=== PATIENT | female | born 1955 | race Caucasian/White ===

== ENCOUNTER → 2024-10-30 | Outpatient (CLI) | payer MEDICARE, SELFPAY ==
[2024-10-30 15:55] LABS: Glucose Estimated Average 189 mg/dL (80-131); Hemoglobin A1C 8.2 % Hgb (4.8-6.0)
[2024-10-30 15:59] LABS: Collection Type, Urine Clean Catch
[2024-10-30 16:08] LABS: Alanine Aminotransferase 22 U/L (10-49); Albumin, Serum 4.5 gm/dL (3.4-4.8); Alkaline Phosphatase 92 U/L (46-116); Anion Gap 5 (7-16); Aspartate Amino Transferase 15 U/L (0-34); BUN/Creatinine Ratio 23 Ratio (12-20); Bilirubin,Total 0.6 mg/dL (0.3-1.2); Blood Urea Nitrogen 18 mg/dL (9-23); Calcium 9.5 mg/dL (8.3-10.6); Calcium (Corrected) 9.5 mg/dL (8.5-10.1); Carbon Dioxide 34.4 mMol/L (20.0-31.0); Cardiac Risk Estimate 2.3 RATIO (3.7-5.6); Chloride 102 mMol/L (98-107); Cholesterol 149 mg/dL (132-200); Creatinine (Component) 0.8 mg/dL (0.6-1.3); Globulin 2.3 gm/dL (2.3-3.5); Glucose 54 mg/dL (74-106); HDL Cholesterol 66 mg/dL (40-60); LDL Cholesterol,Calculated 70 mg/dL (0-130); Osmolality,Calculated 281 (275-295); Sodium 141 mMol/L (136-145); Thyroid Stimulating Hormone 2.32 uIU/mL (0.55-4.78); Total Protein 6.8 gm/dL (5.7-8.2); Triglycerides 66 mg/dL (30-150); eGFR > 60 See Note
[2024-10-30 16:16] LABS: Basophils % (Auto) 1 % (0-2.5); Eosinophils % (Auto) 1 % (0-10); Hematocrit 49.4 % (36.0-46.0); Hemoglobin 16.7 g/dL (12.0-16.0); Immature Granulocytes % (Auto) 0 % (0-0); Immature Granulocytes Auto 0.01 Thou/mm3 (0.00-0.00); Lymphocytes # (Auto) 2.4 Thou/mm3 (1.0-4.8); Lymphocytes % (Auto) 42 % (10-50); Mean Corpuscular HGB Conc 33.8 g/dl (31.0-37.0); Mean Corpuscular Hemoglobin 31.2 pg (25.0-35.0); Mean Corpuscular Volume 92 fL (80-100); Monocytes # (Auto) 0.4 Thou/mm3 (0.0-0.8); Monocytes % (Auto) 8 % (0-12); Neutrophils # (Auto) 2.8 Thou/mm3 (1.8-7.7); Neutrophils % (Auto) 49 % (37-80); Nucleated Red Blood Cell % 0 /100 WBC (0); Platelet Count 225 Thou/mm3 (140-440); RDW Standard Deviation 42.5 fL (36.4-46.3); Red Blood Count 5.36 Miln/mm3 (4.00-5.20); White Blood Count 5.8 Thou/mm3 (3.6-11.0)
[2024-10-30 16:49] LABS: Bacteria,Urine Rare; Bilirubin,Urine Negative (Negative); Blood,Urine Negative (Negative); Clarity,Urine Clear (Clear/Hazy); Color,Urine Yellow (Lt Yel-Yel); Glucose, Urine 4+ (Negative); Ketones,Urine Negative (Negative); Leukocyte Esterase,Urine Negative (Negative); Nitrite,Urine Negative (Negative); Protein,Urine Trace (Neg - Trace); RBC,Urine 2 /hpf (0-3); Specific Gravity,Urine 1.048 (1.001-1.035); Squamous Epithelial Cell,Urine 1 /hpf (0-5); Urobilinogen,Urine Negative mg/dL (0.0-1.0); WBC,Urine 1 /hpf (0-5)
[2024-10-30 16:55] LABS: Creatinine MALB Rnd Ur 127 mg/dL (30-125); Microalbumin Creat Ratio 6 mg/gCrea (<30); Microalbumin, Random Urine 8 mg/L (0-300)
== END | disposition home or self-care (01) ==
LOC: COPL 14:54
PROVIDERS: PCP Internal Medicine; Referring Provider Internal Medicine; Visit Provider Internal Medicine
DX: E11.9 Type 2 diabetes mellitus without complications (principal); I10 Essential (primary) hypertension; E78.5 Hyperlipidemia, unspecified
CPT/HCPCS: 36415; 80053; 80061; 81001; 82043; 82570; 83036; 84443; 85025

== ENCOUNTER 2025-04-10 08:03 | Inpatient (IN) | payer MEDICARE, BC, SELFPAY ==
[2025-04-10] VITALS (45 sets, daily range): BP systolic 71–132; BP diastolic 38–78; PULSE 96–128; RESP 10–96; TEMP 36.6–37.7; O2SAT 82–99; BMI 20.7
--- NOTE | 2025-04-10 08:09 | EDNOTE_ITS ---
ED Dizzyness RME/HPI General Chief Complaint: Dizziness Stated Complaint: DIZZINESS Time Seen by Provider: 04/10/25 08:30 Arrival date/time: 04/10/25 08:03 RME / HPI RME / HPI Narrative: DR. RAY MAIN ED EVALUATION: This section includes all my notes and documentations, including HPI, PE, and ED course.? Antoine Ray MD HPI: 69 year old female with past medical history significant for diabetes and hypertension presents to the Emergency Department [facility] with dizziness and generalized weakness for couple days. No chest pain. No fevers or chills. No congestion, runny nose, or cough. Blood glucose by EMS was 285, patient took her insulin this morning. Here blood pressure was 95/53. She lives with her son and grandson. No other complaints. ROS: All negative except as documented in HPI. Physical Exam: General:? Alert and oriented.? Appearance of malaise noted. Hypotension noted. Eyes:? Conjunctivae and lids clear.? EOMI.? PERRL. ENT:? No nasal congestion.? Pharynx normal.? Tympanic membrane normal bilaterally.??? Neck:? Supple.? No carotid bruit.? No JVD.?? Heart:? RRR.? Lungs:? No respiratory distress.? Good air movement.? No rhonchi, wheezing, rales.?? Abdomen:? Soft and nontender.? Normal bowel sounds.? No distension.? No rebound or guarding.?? Back:? No CVA tenderness.?? Legs:? No clubbing, cyanosis, edema.? Skin:? Warm and dry.?? Neuro:? Alert and oriented X 3.? Cranial Nerves II-XII grossly intact.? No peripheral motor deficits. I reviewed EMS notes. I reviewed all diagnostic test results. My interpretation of the EKG is?Sinus rhythm (96 bpm) with nonspecific ST-T changes. My interpretation of the chest x-ray is NAD. My interpretation of the right forearm x-rays is radial head fracture. My review of the head CT report is?NAD. My review of the abdominal CT report is LLL pneumonia. Blood tests remarkable for WBC 17.2, CO2 15.1, anion gap 17, lactic acid 9.8, and glucose 219. UA showed positive leukocyte esterase and 64 WBC. COVID/influenza negative. At this point, diagnoses include generalized weakness, pneumonia, UTI, elevated lactic acid, elevated anion gap, leukocytosis, hyperglycemia, right elbow f racture. Meclizine and Zofran and scopolamine patch before diagnostic tests. No improvement noted. Other treatment included IV fluid, Levophed drip, ABX. I discussed the case with our ICU team.? About the presentation and exam and diagnostics and treatments here.? And need of further care in the hospital. Will accept the patient. Antoine Ray MD Related Data Home Medications ?Medication ?Instructions ?Recorded ?Confirmed insulin glargine 100 unit/mL 70 unit subcut HS ##0 05/12/21 subcutaneous solution (Lantus U-100 Insulin) bupropion HCl 300 mg 24 hr tablet, 300 mg PO QAM 02/0405/12/21 extended release (Wellbutrin XL) metformin 500 mg tablet 500 mg PO BID 02/04/1905/12 doxepin 50 mg capsule 50 mg PO HS 07/31/20 1 duloxetine 30 mg capsule,delayed 60 mg PO QDAY 0 05/12/21 release nadolol 40 mg tablet 40 mg PO QDAY 07/31/2005/12 simvastatin 40 mg tablet 40 mg PO HS 07/31/20 1 telmisartan 20 mg tablet 20 mg PO QDAY 07/31/2005/12 Previous Rx's ?Medication ?Instructions ?Recorded hydrocodone 5 mg-acetaminophen 325 1 tab PO Q6H PRN pa in #7 tabs 05/12/23 mg tablet Allergies Allergy/AdvReac Type Severity Reaction Status Date / Time No Known Allergies Allergy Verified 05/11/21 21:16 Course Quality Measures none Orders Category Date Time Status Bedside COVID-19 Antigen Test NOW Care 04/10/25 08:09 Active Bedside Influenza A&B Antigen Test NOW Care 04/10/25 08:09 Completed COVID-19 Screening Questionnaire NOW Care 04/10/25 11:44 Active Decision to Admit X1 Care 04/10/25 11:44 Completed EKG (ED ONLY) *Do not use* NOW Care 04/10/25 08:10 Completed Flu & Pneumonia Vaccine Screen ONCE Care 04/10/25 12:01 Active Notify provider NEEDED Care 04/10/25 12:01 Active Saline [Insert IV] NOW Care 04/10/25 08:09 Active Straight [In and Out Catheter] X1 Care 04/10/25 08:09 Active Consult to Nephrology Stat Cons 04/10/25 11:[address] head/brain wo con Stat Exams 04/10/25 08:10 Completed EKG (ED Only) Stat Exams 04/10/25 08:10 Draft XR chest 1V portable Stat Exams 04/10/25 08:10 Completed ABG [Arterial Blood Gas] Stat Lab 04/10/25 11:11 Completed BNP [B-Type Natriuretic Peptide] Stat Lab 04/10/25 08:35 Completed Beta Hydroxybutyrate Stat Lab 04/10/25 09:48 Completed Bilirubin,Direct Stat Lab 04/10/25 08:35 Completed Blood Culture (Lab) Stat Lab 04/10/25 11:06 Results CBC AM DRAW Lab 04/11/25 05:18 Completed CBC AM DRAW Lab 04/12/25 05:00 Ordered CBC AM DRAW Lab 04/13/25 05:00 Ordered CBC Stat Lab 04/10/25 08:35 Completed CMP [Comprehensive Metabolic Panel] Stat Lab 04/10/25 08:35 Completed CRP [C-Reactive Protein] Stat Lab 04/10/25 11:03 Completed Free T4 (Free Thyroxine) Stat Lab 04/10/25 08:35 Completed Hemoglobin A1C [Glycohemoglobin w (eAG)] Stat Lab 04/10/25 09:48 Completed Lactate (Lactic Acid) Stat Lab 04/10/25 11:03 Completed Lactic Acid, 3 HR Stat Lab 04/10/25 14:22 Completed Magnesium AM DRAW Lab 04/11/25 05:18 Completed Magnesium AM DRAW Lab 04/12/25 05:00 Ordered Magnesium AM DRAW Lab 04/13/25 05:00 Ordered Magnesium Stat Lab 04/10/25 08:35 Completed Procalcitonin Stat Lab 04/10/25 11:03 Completed Sed Rate (ESR) Stat Lab 04/10/25 08:35 Completed TSH [Thyroid Stimulating Hormone] Stat Lab 04/10/25 08:35 Completed Troponin I Stat Lab 04/10/25 08:35 Completed UA, C/S IF [Urinalysis, C/S if Indicated] Stat Lab 04/10/25 14:12 Completed Urine Culture Stat Lab 04/10/25 14:12 Received VBG [Venous Blood Gas] Stat Lab 04/10/25 09:48 Completed Acetaminophen Tab [Tylenol ES Tab] Med 04/10/25 12:01 Discontinued 1,000 mg PO Q6H PRN Enoxaparin [Lovenox] Med 04/11/25 09:00 Discontinued 40 mg SC QDAY Insulin Regular Med 04/10/25 09:29 Discontinued 10 unit IV X1 ONE Meclizine HCl [Antivert] Med 04/10/25 08:09 Discontinued 25 mg PO X1 ONE Norepinephrine/NS 16mg/250ml [Levophed in NS 16mg/250ml Med 04/10/25 10:42 Active ] 16 mg in 250 ml IV 0.05 mcg/kg/min Ondansetron Inj [Zofran Inj] Med 04/10/25 12:01 Active 4 mg IVP Q6H PRN Ondansetron Inj [Zofran Inj] Med 04/10/25 08:09 Discontinued 4 mg IVP X1 ONE Ringers Lactated 1000 ml [Lactated Ringers] 1,000 ml Med 04/10/25 12:53 Discontinued IV 100 mls/hr Scopolamine [Transderm-Scop Patch] Med 04/10/25 08:09 Discontinued 1 mg TOP X1 ONE Sodium Chloride 0.9% 1000 ml [Ns] 1,000 ml Med 04/10/25 08:09 Discontinued IV 999 mls/hr Sodium Chloride 0.9% 1000 ml [Ns] 1,000 ml Med 04/10/25 10:37 Discontinued IV 999 mls/hr Sodium Chloride 0.9% 1000 ml [Ns] 1,000 ml Med 04/10/25 12:52 Discontinued IV 999 mls/hr Code Status Routine Oth 04/10/25 12:01 Ordered Vital Signs Vital signs: Vital Signs Temperature 97.8 F 04/10/25 08:06 Pulse Rate 96 04/10/25 08:06 Respiratory Rate 18 04/10/25 08:06 Blood Pressure 95/53 L 04/10/25 08:06 Pulse Oximetry (%) 96 04/10/25 08:06 Oxygen Delivery Method Room Air 04/10/25 08:06 Dizziness MDM Narrative MDM Narrative:: I, Ester Wallace, am scribing for and in the presence of Dr. Ray. Patient data External records reviewed:: [facility] previous records and EMS form Clinical information provided by:: patient and EMS Social determinants that could affect healthcare access:: none Patient has the following chronic illnesses:: Hypertension and diabetes. How is presenting disease/condition affected by chronic disease/condition?: exacerbated by Evaluation data The following diagnostics were reviewed and interpreted by me:: lab results, radiology exam(s) and EKG tracing(s) (My interpretation of the EKG is: Sinus rhythm (96 bpm) with nonspecific ST-T changes. Antoine Ray MD) Lab and/or radiology exams considered but not ordered:: none Interpretation Summary: I reviewed all diagnostic test results. My interpretation of the EKG is?Sinus rhythm (96 bpm) with nonspecific ST-T changes. My interpretation of the chest x-ray is NAD. My interpretation of the right forearm x-rays is radial head fracture. My review of the head CT report is?NAD. My review of the abdominal CT report is LLL pneumonia. Blood tests remarkable for WBC 17.2, CO2 15.1, anion gap 17, lactic acid 9.8, and glucose 219. UA showed positive leukocyte esterase and 64 WBC. COVID/influenza negative. Medications / Prescriptions Medications or Prescriptions considered but not ordered:: none Medication administrations:: Medication Administration History Acetaminophen (Acetaminophen 500 Mg Tablet) 1,000 mg PO Q6H PRN PRN Reason: Fever >99.9 or pain 1-3 Stop: 05/10/25 12:00 Hydrocodone Bitart/Acetaminophen (Hydrocodone/Apap 5/325 Tablet) 1 tab PO Q4HR PRN PRN Reason: Pain 4-7 Stop: 04/15/25 17:06 Last Admin: 04/11/25 22:02 Dose: 1 tab Documented By: Admin: 04/11/25 17:33 Dose: 1 tab Documented By: Admin: 04/11/25 13:23 Dose: 1 tab Documented By: Admin: 04/10/25 17:50 Dose: 1 tab Documented By: PIPPA Atorvastatin Calcium (Atorvastatin Calcium 20 Mg Tablet) 80 mg PO HS [facility] Stop: 05/11/25 20:59 Last Admin: 04/11/25 21:07 Dose: 80 mg Documented By: CAROLINA Buspirone HCl (Buspirone Hcl 5 Mg Tablet) 10 mg PO BID [facility] Stop: 05/10/25 20:59 Last Admin: 04/11/25 21:06 Dose: 10 mg Documented By: Admin: 04/11/25 08:08 Dose: 10 mg Documented By: Admin: 04/10/25 22:12 Dose: Not Given Documented By: SS Non-Admin Reason: Per MD Dextrose (Dextrose 50%-Water Inj 50 Ml Syringe) 25 ml IV Q15MIN PRN PRN Reason: BG 50-70 responsive npo pt Stop: 05/10/25 14:32 Dextrose (Dextrose 50%-Water Inj 50 Ml Syringe) 50 ml IV Q15MIN PRN PRN Reason: BG <50 OR BG <70 & pt unresponsive Stop: 05/10/25 14:32 Duloxetine HCl (Duloxetine Hcl 30 Mg Capsule) 60 mg PO QDAY [facility] Stop: 05/11/25 08:59 Last Admin: 04/11/25 08:08 Dose: 60 mg Documented By: ALEJANDRO Glucagon (Glucagon Inj 1 Mg Vial) 1 mg IM Q15MIN PRN PRN Reason: BG <70, and no IV access Heparin Sodium (Porcine) (Heparin Sod Inj 5000 Unit/Ml Vial) 5,000 unit SC BID [facility] Stop: 04/25/25 08:59 Last Admin: 04/11/25 21:06 Dose: 5,000 unit Documented By: CAROLINA Co-signed By: ARETHA Admin: 04/11/25 08:09 Dose: 5,000 unit Documented By: ALEJANDRO Co-signed By: KD Norepinephrine Bitartrate (Levophed In Ns 16mg/250ml) 16 mg in 250 mls @ 2.977 mls/hr IV .Q24H PRN; Protocol PRN Reason: PER PROTOCOL Stop: 05/10/25 10:41 Last Titration: 04/10/25 13:13 Dose: 0 mcg/kg/min, 0 mls/hr Documented By: Titration: 04/10/25 12:50 Dose: 0.05 mcg/kg/min, 2.977 mls/hr Documented By: Titration: 04/10/25 12:35 Dose: 0.05 mcg/kg/min, 2.977 mls/hr Documented By: Titration: 04/10/25 12:20 Dose: 0.05 mcg/kg/min, 2.977 mls/hr Documented By: Titration: 04/10/25 12:05 Dose: 0.05 mcg/kg/min, 2.977 mls/hr Documented By: Titration: 04/10/25 11:50 Dose: 0.07 mcg/kg/min, 4.167 mls/hr Documented By: Titration: 04/10/25 11:35 Dose: 0.07 mcg/kg/min, 4.167 mls/hr Documented By: Titration: 04/10/25 11:20 Dose: 0.07 mcg/kg/min, 4.167 mls/hr Documented By: Titration: 04/10/25 11:05 Dose: 0.07 mcg/kg/min, 4.167 mls/hr Documented By: Titration: 04/10/25 11:00 Dose: 0.07 mcg/kg/min, 4.167 mls/hr Documented By: Admin: 04/10/25 10:55 Dose: 0.05 mcg/kg/min, 2.977 mls/hr Documented By: TM Piperacillin/Tazobactam/Dextrose (Zosyn) 3.375 gm in 50 mls @ 12.5 mls/hr IV Q8HR [facility]; Protocol Stop: 04/17/25 21:59 Last Admin: 04/11/25 21:08 Dose: 12.5 mls/hr Documented By: Infusion: 04/11/25 19:00 Dose: Infused Documented By: Admin: 04/11/25 15:00 Dose: 12.5 mls/hr Documented By: Infusion: 04/11/25 10:23 Dose: Infused Documented By: Admin: 04/11/25 06:23 Dose: 12.5 mls/hr Documented By: Infusion: 04/11/25 02:13 Dose: Infused Documented By: Admin: 04/10/25 22:13 Dose: 12.5 mls/hr Documented By: SS Vancomycin/Sodium Chloride (Vancomycin/Ns 1 Gm Ivpb) 200 mls @ 120 mls/hr IV Q24H [facility] Stop: 04/18/25 21:59 Last Admin: 04/11/25 21:07 Dose: 120 mls/hr Documented By: CAORLINA Sodium Chloride (Ns) 1,000 mls @ 75 mls/hr IV .[id number] [facility] Stop: 05/11/25 09:05 Last Admin: 04/11/25 21:01 Dose: 75 mls/hr Documented By: Infusion: 04/11/25 21:01 Dose: Infused Documented By: Admin: 04/11/25 10:00 Dose: 75 mls/hr Documented By: ALEJANDRO Insulin Human Lispro (Insulin Lispro (Admelog) 1 Unit/0.01 Ml Unit) 0 unit SC AC [facility]; Protocol Stop: 05/10/25 16:59 Last Admin: 04/11/25 17:33 Dose: 4 unit Documented By: ALEJANDRO Co-signed By: Admin: 04/11/25 11:53 Dose: 3 unit Documented By: ALEJANDRO Co-signed By: ASHLEY Admin: 04/11/25 08:09 Dose: 2 unit Documented By: ALEJANDRO Co-signed By: ASHLEY Admin: 04/10/25 22:18 Dose: Not Given Documented By: SEBASTIAN Non-Admin Reason: previous shift Levalbuterol HCl (Levalbuterol Rt 0.63 Mg/3 Ml Nebu) 0.63 mg INH Q6HRRT PRN PRN Reason: wheezing Stop: 05/10/25 18:59 Midodrine (Midodrine 5 Mg Tablet) 10 mg PO BID PRN PRN Reason: MAP <65 or SBP < 95 Stop: 05/10/25 20:59 Last Admin: 04/10/25 17:17 Dose: 10 mg Documented By: PPIPA Ondansetron HCl (Ondansetron Inj 2 Mg/Ml Inj 2 Ml) 4 mg IVP Q6H PRN; Protocol PRN Reason: NAUSEA OR VOMITING Stop: 05/10/25 12:00 Last Admin: 04/10/25 15:34 Dose: 4 mg Documented By: TAYLOR Pantoprazole Sodium (Pantoprazole Inj 40 Mg Vial) 40 mg IVP QDAY [facility] Stop: 05/11/25 10:29 Last Admin: 04/11/25 10:58 Dose: 40 mg Documented By: ALEJANDRO Pharmacy Consult (Pharmacy Renal Dose Adjustment 1 Ea) 1 each XX PRN PRN PRN Reason: CONSULT Stop: 05/10/25 15:03 Pharmacy Consult (Vancomycin Pharmacy To Dose 1 Each Each) 1 each IV QDAY PRN PRN Reason: PROTOCOL Stop: 05/10/25 22:39 Sennosides (Senna Tablet) 2 tab PO QDAY PRN; Protocol PRN Reason: CONSTIPATION Stop: 05/11/25 15:14 Trazodone HCl (Trazodone Hcl 50 Mg Tablet) 100 mg PO [facility] Stop: 05/10/25 20:59 Last Admin: 04/11/25 21:07 Dose: 100 mg Documented By: Admin: 04/10/25 22:13 Dose: Not Given Documented By: SS Non-Admin Reason: per MD Discontinued Medications Acetaminophen (Acetaminophen 500 Mg Tablet) 1,000 mg PO Q6H PRN PRN Reason: Fever >99.9 Stop: 05/10/25 12:00 Last Admin: 04/10/25 14:02 Dose: 1,000 mg Documented By: TAYLOR Aspirin (Aspirin Ec 81 Mg Tabec) 81 mg PO QDAY [facility] Stop: 05/11/25 08:59 Last Admin: 04/11/25 08:08 Dose: 81 mg Documented By: ALEJANDRO Atorvastatin Calcium (Atorvastatin Calcium 10 Mg Tablet) 20 mg PO [facility] Stop: 05/10/25 20:59 Last Admin: 04/10/25 22:12 Dose: Not Given Documented By: SS Non-Admin Reason: Per Enoxaparin Sodium (Enoxaparin Sod Inj 40 Mg/0.4 Ml Syringe) 40 mg SC QDAY [facility] Stop: 04/25/25 08:59 Sodium Chloride (Ns) 1,000 mls @ 999 mls/hr IV .Q1H1M ONE Stop: 04/10/25 09:09 Last Infusion: 04/10/25 09:35 Dose: Infused Documented By: Admin: 04/10/25 08:34 Dose: 999 mls/hr Documented By: TAYLOR Sodium Chloride (Ns) 1,000 mls @ 999 mls/hr IV .Q1H1M ONE Stop: 04/10/25 11:37 Last Infusion: 04/10/25 13:17 Dose: Infused Documented By: Admin: 04/10/25 10:49 Dose: 999 mls/hr Documented By: TAYLOR Sodium Chloride (Ns) 1,000 mls @ 999 mls/hr IV .Q1H1M ONE Stop: 04/10/25 13:52 Last Infusion: 04/10/25 14:14 Dose: Infused Documented By: Admin: 04/10/25 13:13 Dose: 999 mls/hr Documented By: CARTER Lactated Ringer's (Lactated Ringers) 1,000 mls @ 100 mls/hr IV .Q10H [facility] Stop: 05/10/25 12:52 Last Admin: 04/10/25 14:02 Dose: 100 mls/hr Documented By: TM Sodium Chloride (Ns) 1,000 mls @ 999 mls/hr IV .Q1H1M ONE Stop: 04/10/25 16:14 Last Admin: 04/10/25 15:24 Dose: 999 mls/hr Documented By: TM Lactated Ringer's (Lactated Ringers) 1,000 mls @ 999 mls/hr IV .Q1H1M ONE Stop: 04/10/25 17:10 Last Admin: 04/10/25 16:27 Dose: 999 mls/hr Documented By: TAYLOR Lactated Ringer's (Lactated Ringers) 1,000 mls @ 999 mls/hr IV .Q1H1M ONE Stop: 04/10/25 18:15 Last Admin: 04/10/25 19:42 Dose: 999 mls/hr Documented By: SEBASTIAN Piperacillin/Tazobactam/Dextrose (Zosyn) 3.375 gm in 50 mls @ 100 mls/hr IV X1 ONE Stop: 04/10/25 17:29 Last Admin: 04/10/25 22:17 Dose: Not Given Documented By: SEBASTIAN Non-Admin Reason: previous shift Lactated Ringer's (Lactated Ringers) 1,000 mls @ 999 mls/hr IV .Q1H1M ONE Stop: 04/10/25 20:58 Last Admin: 04/10/25 21:05 Dose: 999 mls/hr Documented By: SEBASTIAN Vancomycin/Sodium Chloride (Vancomycin/Ns 1 Gm Ivpb) 200 mls @ 120 mls/hr IV X1 ONE Stop: 04/11/25 00:24 Last Admin: 04/10/25 23:56 Dose: 120 mls/hr Documented By: SS Sodium Chloride (Ns) 1,000 mls @ 125 mls/hr IV .Q8H [facility] Stop: 05/11/25 00:09 Last Admin: 04/11/25 08:09 Dose: 125 mls/hr Documented By: Infusion: 04/11/25 08:09 Dose: Infused Documented By: Admin: 04/11/25 00:26 Dose: 125 mls/hr Documented By: SEBASTIAN Insulin Human Lispro (Insulin Lispro (Admelog) 1 Unit/0.01 Ml Unit) 4 unit SC X1 ONE Stop: 04/10/25 21:32 Last Admin: 04/10/25 21:53 Dose: 4 unit Documented By: SEBASTIAN Co-signed By: Insulin Human Lispro (Insulin Lispro (Admelog) 1 Unit/0.01 Ml Unit) 4 unit SC X1 ONE Stop: 04/11/25 00:41 Last Admin: 04/11/25 00:49 Dose: 4 unit Documented By: SEBASTIAN Co-signed By: Insulin Human Regular (Insulin Hum Regular 1 Unit/0.01 Ml (Per Unit)) 10 unit IV X1 ONE Stop: 04/10/25 09:30 Last Admin: 04/10/25 10:48 Dose: 10 unit Documented By: TAYLOR Co-signed By: DO Ketorolac Tromethamine (Ketorolac Inj 30 Mg/Ml Vial) 30 mg IVP X1 ONE Stop: 04/10/25 22:06 Last Admin: 04/10/25 22:14 Dose: 30 mg Documented By: SEBASTIAN Magnesium Hydroxide (Milk Of Magnesia Susp 30 Ml Udc) 30 ml PO Q12HR PRN; Protocol PRN Reason: CONSTIPATION Stop: 05/11/25 15:13 Magnesium Hydroxide (Milk Of Magnesia Susp 30 Ml Udc) 30 ml PO X1 ONE; Protocol Stop: 04/11/25 15:16 Last Admin: 04/11/25 15:34 Dose: 30 ml Documented By: ALEJANDRO Meclizine HCl (Meclizine Hcl 25 Mg Tablet) 25 mg PO X1 ONE Stop: 04/10/25 08:10 Last Admin: 04/10/25 09:15 Dose: 25 mg Documented By: TAYLOR Midodrine (Midodrine 5 Mg Tablet) 5 mg PO BID PRN PRN Reason: MAP below 65/ SBP below 100 Stop: 05/10/25 20:59 Ondansetron HCl (Ondansetron Inj 2 Mg/Ml Inj 2 Ml) 4 mg IVP X1 ONE; Protocol Stop: 04/10/25 08:10 Last Admin: 04/10/25 09:14 Dose: 4 mg Documented By: TM Potassium Chloride (Potassium Chloride 20 Meq Tabcr) 20 meq PO X1 ONE Stop: 04/10/25 15:13 Last Admin: 04/10/25 15:33 Dose: 20 meq Documented By: TM Scopolamine (Scopolamine 1 Mg Tdsy) 1 mg TOP X1 ONE Stop: 04/10/25 08:10 Last Admin: 04/10/25 09:14 Dose: 1 mg Documented By: TM Meclizine and Zofran and scopolamine patch before diagnostic tests. No improvement noted. Other treatment included IV fluid, Levophed drip, ABX. Consultations Consultation(s) initiated? (list below): Yes Consultation #1 (Physician, Specialty, Details): I discussed the case with our ICU team.? About the presentation and exam and diagnostics and treatments here.? And need of further care in the hospital. Will accept the patient. Diagnosis Dizziness Differential Diagnosis: adverse reaction to drug, benign paroxysmal positional vertigo, orthostatic hypotension, vertebral basilar insufficiency, cerebrovascular accident, acute vestibular neuronitis and transient cerebral ischemia Most likely diagnosis given after review of the tests above:: At this point, diagnoses include generalized weakness, pneumonia, UTI, elevated lactic acid, elevated anion gap, leukocytosis, hyperglycemia, right elbow fracture. Admission Indicated Admission indicated?: indicated Explain why admission is indicated or not indicated:: Severe diagnoses, including generalized weakness, pneumonia, UTI, elevated lactic acid, elevated anion gap, leukocytosis, hyperglycemia, right elbow fracture. Admission Request Was there a request for admission?: Yes Admission Attestation Admission request attestation: Discussed case with ICU service regarding admission. Discussed patients ED course, exam findings, labs, and radiology results. The Hospitalist [agrees] to accept the patient for admission. Disposition Plan Disposition Plan: Admit Discharge Plan Plan Patient Disposition: Admit Acute Care w/in Hospital Problem List Clinical Impression: Hypotension, UTI (urinary tract infection), Pneumonia, Elbow fracture, right, Generalized weakness, Dizziness, Elevated lactic acid level, Hyperglycemia
--- NOTE | 2025-04-10 08:10 | EKG_ITS ---
[facility] Test Date: 2025-04-10 Pat Name: TIANNA TEIXEIRA Department: Room: - Gender: Female Sensor Operator: : [id number] Requested By: Antoine Waddell Order Number: [id number] Reading MD: Antoine Waddell Measurements Intervals Ava Rate: 96 P: 48 WY: 153 QRS: 13 QRSD: 102 T: 77 QT: 369 QTc: 469 Interpretive Statements SINUS RHYTHM NONSPECIFIC T-WAVE ABNORMALITY Compared to ECG 07/31/2020 09:57:50 T-wave abnormality now present Sinus tachycardia no longer present /store/S0/[id number].pdf
--- NOTE | 2025-04-10 08:10 | XR_ITS ---
Examination: AP chest single view Technique one AP portable sitting chest single view Date and time: 12/11/2024 0857 hours INDICATIONS: Dizziness syncope shortness of breath today. FINDINGS: Large retrocardiac gastric hernia Normal heart size No lobar pneumonia Prominent osteopenia IMPRESSION: Large retrocardiac gastric hernia
--- NOTE | 2025-04-10 08:10 | XR_ITS ---
Examination: CT brain head without contrast. 2-D sagittal coronal reconstructions Date and time of exam:April 10, 2025 0844 hours INDICATIONS: Syncopal facet, patient fell today with injury to the head, head pain COMPARISON: May 11, 2021 CTDI: vol (mGy):47.3 DLP: (mGycm):967 Technique: Multiple CT axial sections of the brain have been obtained, 5 mm slice thickness. Contrast has not been administered. 2-D sagittal, coronal reconstructions have been obtained Low dose protocols were performed. One or more of the following dose reduction techniques were used; automated exposure control, adjustment of the mA and/or KV according to patient size, use of iterative reconstruction technique. Findings: No significant ventricular enlargement. Intra-axial or extra-axial hemorrhage density is not seen. No mass effect or midline shift Basal cisterns are not remarkable. Fourth ventricle is midline. Cranial vault intact. Impression: Negative for acute hemorrhage, mass effect or midline shift
[2025-04-10] MEDS: SODIUM CHLORIDE 0.9% 1000 ML 1,000 ML 999 ML IV ×4 (08:34→15:24)
[2025-04-10 08:53] LABS: Basophils % (Auto) 0 % (0-2.5); Eosinophils % (Auto) 0 % (0-10); Hematocrit 43.3 % (36.0-46.0); Hemoglobin 14.6 g/dL (12.0-16.0); Immature Granulocytes % (Auto) 1 % (0-0); Immature Granulocytes Auto 0.08 Thou/mm3 (0.00-0.00); Lymphocytes # (Auto) 1.3 Thou/mm3 (1.0-4.8); Lymphocytes % (Auto) 10 % (10-50); Mean Corpuscular HGB Conc 33.7 g/dl (31.0-37.0); Mean Corpuscular Hemoglobin 31.9 pg (25.0-35.0); Mean Corpuscular Volume 95 fL (80-100); Monocytes # (Auto) 0.7 Thou/mm3 (0.0-0.8); Monocytes % (Auto) 5 % (0-12); Neutrophils # (Auto) 10.9 Thou/mm3 (1.8-7.7); Neutrophils % (Auto) 84 % (37-80); Nucleated Red Blood Cell % 0 /100 WBC (0); Platelet Count 248 Thou/mm3 (140-440); RDW Standard Deviation 43.3 fL (36.4-46.3); Red Blood Count 4.58 Miln/mm3 (4.00-5.20); White Blood Count 12.9 Thou/mm3 (3.6-11.0)
[2025-04-10 09:13] LABS: B-Type Natriuretic Peptide 51 pg/mL (0-100)
[2025-04-10] MEDS: SCOPOLAMINE 1 MG TDSY TOP (09:14)
[2025-04-10] MEDS: ONDANSETRON INJ 2 MG/ML INJ 2 ML 4 MG IVP ×2 (09:14→15:34)
[2025-04-10] MEDS: MECLIZINE HCL 25 MG TABLET PO (09:15)
[2025-04-10 09:18] LABS: Alanine Aminotransferase 22 U/L (10-49); Albumin, Serum 3.7 gm/dL (3.4-4.8); Albumin/Globulin Ratio 1.7 (1.2-2.2); Alkaline Phosphatase 109 U/L (46-116); Anion Gap 21 (7-16); Aspartate Amino Transferase 23 U/L (0-34); BUN/Creatinine Ratio 8 Ratio (12-20); Bilirubin,Direct 0.3 mg/dL (0.0-0.3); Bilirubin,Total 0.5 mg/dL (0.3-1.2); Blood Urea Nitrogen 11 mg/dL (9-23); Calcium 9.3 mg/dL (8.3-10.6); Calcium (Corrected) 9.5 mg/dL (8.5-10.1); Chloride 98 mMol/L (98-107); Creatinine (Component) 1.3 mg/dL (0.6-1.3); Estimated Creatinine Clearance 41.5 mL/min (>60); Free T4 (Free Thyroxine) 1.12 ng/dL (0.89-1.76); Globulin 2.2 gm/dL (2.3-3.5); Magnesium 2.4 mg/dL (1.6-2.6); Osmolality,Calculated 292 (275-295); Potassium 3.8 mMol/L (3.4-5.1); Sodium 138 mMol/L (136-145); Thyroid Stimulating Hormone 1.12 uIU/mL (0.55-4.78); Total Protein 5.9 gm/dL (5.7-8.2); Troponin I < 0.020 ng/mL (0.0-0.045); eGFR 45 See Note
[2025-04-10 09:28] LABS: Glucose 406 mg/dL (74-106)
[2025-04-10 09:57] LABS: Base Excess, Venous -7 (-3-3); O2 Saturation, Venous 73 % (96-97); PCO2, Venous 35 mmHg (36-56); PO2, Venous 42 mmHg (15-58); pH, Venous 7.32 (7.33-7.66)
[2025-04-10 10:02] LABS: Beta Hydroxybutyrate 0.3 mmol/L (<0.6)
[2025-04-10 10:11] LABS: Glucose Estimated Average 174 mg/dL (80-131); Hemoglobin A1C 7.7 % Hgb (4.8-6.0)
[2025-04-10] MEDS: INSULIN HUM REGULAR 1 UNIT/0.01 ML (PER UNIT) 10 UNIT IV (10:48)
[2025-04-10] MEDS: Norepinephrine/NS 16mg/250ml 16 MG/250 ML BAG 2.977 MG IV (10:55)
[2025-04-10 11:15] LABS: Base Excess -7 (-3-3); HCO3 18 mEq/L (20-26); Inspired Oxygen, FIO2 21 %; O2 Saturation 97 % (91-98); PCO2 33 mmHg (32.0-48.0); PO2 87 mmHg (83-108); pH, Arterial 7.35 (7.35-7.45)
[2025-04-10 11:17] LABS: Allen Test Performed/OK; Puncture Site Right Radial
[2025-04-10 11:32] LABS: Sed Rate (ESR) 4 mm/hr (0-30)
[2025-04-10 11:45] LABS: Lactate (Lactic Acid) 8.5 mMol/L (0.4-2.0)
[2025-04-10 12:13] LABS: Procalcitonin 0.44 ng/ml (0.0-0.49)
[2025-04-10 12:33] LABS: C-Reactive Protein < 0.5 mg/dL (0.0-0.9)
[2025-04-10] MEDS: RINGERS LACTATED 1000 ML 1,000 ML 100 ML IV (14:02)
[2025-04-10] MEDS: ACETAMINOPHEN 500 MG TABLET 1000 MG PO (14:02)
--- NOTE | 2025-04-10 14:03 | PD.RESCONSUL ---
[facility] Data of Consult Consult date: 04/10/25 Requesting Physician: Antoine Borrero Attending Provider: Duncan Hirsch Primary Care Provider: David Gray MD Consult Narrative History of present illness: RE: Sonja Lee : 1955 Location of this patient is ED bed 5 REASON FOR CONSULTATION: On Levophed drip, RT: Admission to ICU HISTORY OF PRESENT ILLNESS: Patient is a 69-year-old female who follows up outpatient Dr Gray, has past medical history of type 2 insulin-dependent diabetes, hypertension, hyperlipidemia and anxiety. He was brought to the ED due to loss of consciousness/syncope this morning. Patient has not been able to tolerate diet over the last 3 days, endorses poor appetite. As per caregiver at bedside, patient has had very poor oral intake, and is severely dehydrated. In the ED, patient was given 1 L IV fluid bolus and started on Levophed drip at 0.07 mcg/h. Vitals showed blood pressure 120?130/80-90, and heart rate 120s bpm. Lab work was remarkable for lactic acid 8.5, mild leukocytosis 12.9, anion gap 21, bicarb within normal limits and ABG showed pH within normal limits as well. Hyperglycemia noted on labs glucose 406 and A1c 7.7%. Patient also had EDIE creatinine 1.3 and GFR 45 (baseline creatinine 0.8 and GFR >60). Nephrology Dr. Gray consulted, appreciate recommendations. ICU was consulted regarding admission for hypotension in the setting of metabolic acidosis, on pressor support with Levophed. PHYSICAL EXAMINATION: Constitutional Alert, oriented x3 and comfortable on RA. HEENT Vision grossly intact. Patent nares. Trachea midline. Missing dentation. Respiratory Chest normal on inspection and clear to auscultation bilaterally. Cardiovascular S1 and S2 audible, RRR. 3/6 systolic murmur. No gross JVD. MAP 90s Abdominal Soft and non tender to palpation in all quadrants. BS + Genitourinary No bladder tenderness, no flank pain. Normal to palpation. Musculoskeletal Extremities tone within normal limits. No LE edema. Neurological CN II - XII grossly intact. Extremity motor and sensation grossly intact. Skin Warm, dry and intact. Dehydrated on pinch test Psychiatric Patient has a good affect, is cooperative. IMPRESSION: Anion gap metabolic acidosis secondary to lactic acidosis type II, due to hypoperfusion and poor oral intake. MAP remained in the 80-90s on 0.05mcg of Levophed and then when turned off. RECOMMENDATION: - Give 1 L NS bolus x 1 - Started on maintenance IVF : LR @ 100 cc/h - Trend lactic acid every 6 hours, replete with IV fluids as needed - Recommend more fluid bolus. Bedside US showed collapsible IVC. - Patient has EDIE and type II lactic acidosis, likely due to hypoperfusion from severe dehydration, given poor oral intake over the last 72 hours. - Dr. Gray to admit the patient to telemetry for further management. Plan of care discussed with attending Dr Perez, - Jarrod Heredai M.D. PGY2 Disclaimer: Minor errors in process environmental technician may be present as this note was dictated using voice recognition software. cc:: cc: Exam Vital Signs Temp Pulse Resp BP Pulse Ox O2 Del Method 98.2 F 118 H 20 117/63 96 Room Air 04/10/25 10:38 04/10/25 13:25 04/10/25 13:25 04/10/25 13:25 04/10/25 13:25 04/10/25 13:25 Results Labs 04/12/25 05:14 04/12/25 05:14 Labs: Short CBC 04/10/25 Range/Units 08:35 WBC 12.9 H (3.6-11.0) Thou/mm3 Hgb 14.6 (12.0-16.0) g/dL Hct 43.3 (36.0-46.0) % Plt Count 248 (140-440) Thou/mm3 BMP 04/10/25 08:35 Sodium 138 Potassium 3.8 Chloride 98 Carbon Dioxide 19.0 L BUN 11 Creatinine 1.3 Glucose 406 H* Calcium 9.3 Cardiac Enzymes 04/10/25 Range/Units 08:35 Troponin I < 0.020 (0.0-0.045) ng/mL Liver Function 04/10/25 Range/Units 08:35 Total Bilirubin 0.5 (0.3-1.2) mg/dL Direct Bilirubin 0.3 (0.0-0.3) mg/dL AST 23 (0-34) U/L ALT 22 (10-49) U/L Alkaline Phosphatase 109 (46-116) U/L Albumin 3.7 (3.4-4.8) gm/dL ABG Interpretation ABG results: 04/10/25 04/10/25 09:48 11:11 ABG pH 7.35 ABG pCO2 33 ABG pO2 87 ABG HCO3 18 L ABG O2 Saturation 97 ABG Base Excess -7 L VBG pH 7.32 L VBG pCO2 35 L VBG pO2 42 VBG Base Excess -7 L Quality Measures Quality Measures none Advance care planning discussed with:: patient and other Medications Home Medications and Allergies Home Medications ?Medication ?Instructions ?Recorded ?Confirmed ?Type insulin glargine 100 unit/mL 70 unit subcut HS ##0 08/12/14 05/12/21 History subcutaneous solution (Lantus U-100 Insulin) bupropion HCl 300 mg 24 hr tablet, 300 mg PO QAM 02/04/19 05/12/21 History extended release (Wellbutrin XL) metformin 500 mg tablet 500 mg PO BID 02/04/19 05/12/21 History doxepin 50 mg capsule 50 mg PO HS 07/31/20 05/12/21 History duloxetine 30 mg capsule,delayed 60 mg PO QDAY 07/31/20 05/12/21 History release nadolol 40 mg tablet 40 mg PO QDAY 07/31/20 05/12/21 History simvastatin 40 mg tablet 40 mg PO HS 07/31/20 05/12/21 History telmisartan 20 mg tablet 20 mg PO QDAY 07/31/20 05/12/21 History Allergies Allergy/AdvReac Type Severity Reaction Status Date / Time No Known Allergies Allergy Verified 05/11/21 21:16 Visit Medications Acetaminophen (Acetaminophen 500 Mg Tablet) 1,000 mg PO Q6H PRN PRN Reason: Fever >99.9 Stop: 05/10/25 12:00 Last Admin: 04/10/25 14:02 Dose: 1,000 mg Enoxaparin Sodium (Enoxaparin Sod Inj 40 Mg/0.4 Ml Syringe) 40 mg SC QDAY [facility] Stop: 04/25/25 08:59 Norepinephrine Bitartrate (Levophed In Ns 16mg/250ml) 16 mg in 250 mls @ 2.977 mls/hr IV .Q24H PRN; Protocol PRN Reason: PER PROTOCOL Stop: 05/10/25 10:41 Last Titration: 04/10/25 13:13 Dose: 0 mcg/kg/min, 0 mls/hr Lactated Ringer's (Lactated Ringers) 1,000 mls @ 100 mls/hr IV .Q10H [facility]DEN Stop: 05/10/25 12:52 Last Admin: 04/10/25 14:02 Dose: 100 mls/hr Ondansetron HCl (Ondansetron Inj 2 Mg/Ml Inj 2 Ml) 4 mg IVP Q6H PRN; Protocol PRN Reason: NAUSEA OR VOMITING Stop: 05/10/25 12:00 Discontinued Medications Sodium Chloride (Ns) 1,000 mls @ 999 mls/hr IV .Q1H1M ONE Stop: 04/10/25 09:09 Last Infusion: 04/10/25 09:35 Dose: Infused Sodium Chloride (Ns) 1,000 mls @ 999 mls/hr IV .Q1H1M ONE Stop: 04/10/25 11:37 Last Infusion: 04/10/25 13:17 Dose: Infused Sodium Chloride (Ns) 1,000 mls @ 999 mls/hr IV .Q1H1M ONE Stop: 04/10/25 13:52 Last Admin: 04/10/25 13:13 Dose: 999 mls/hr Insulin Human Regular (Insulin Hum Regular 1 Unit/0.01 Ml (Per Unit)) 10 unit IV X1 ONE Stop: 04/10/25 09:30 Last Admin: 04/10/25 10:48 Dose: 10 unit Meclizine HCl (Meclizine Hcl 25 Mg Tablet) 25 mg PO X1 ONE Stop: 04/10/25 08:10 Last Admin: 04/10/25 09:15 Dose: 25 mg Ondansetron HCl (Ondansetron Inj 2 Mg/Ml Inj 2 Ml) 4 mg IVP X1 ONE; Protocol Stop: 04/10/25 08:10 Last Admin: 04/10/25 09:14 Dose: 4 mg Scopolamine (Scopolamine 1 Mg Tdsy) 1 mg TOP X1 ONE Stop: 04/10/25 08:10 Last Admin: 04/10/25 09:14 Dose: 1 mg Assessment & Plan Attending Provider Attestation/Addendum Patient seen and examined with the above resident, Jarrod Heredia MD. I agree with the findings, assessment, and plan of care as documented except for any differences below. Patient with severe volume depletion. Low dos levophed required in the ED. But after additional volume resuscitation by IM residents able to normalize BP. Levophed was stopped and the patient can safely be admitted to telemetry for ongoing management. Trend lactate overnight and ICU team aware and will monitor remotely. Severe AG metabolic acidosis improving at an appropriate rate with fluids. MAP consistently >65 off pressors with volume expansion and serial bedside USG predicts volume responsiveness with aggressive fluids. I remain available for any needs should they arise. Total critical care time: I personally spent 30 minutes for review of physiologic parameters, directing plan of care including resuscitation, and counseling patient and family at bedside. This is exclusive of time spent teaching housestaff or performing any separate billable procedure. Patient required critical care services for hypovolemic shock, metabolic acidosis, hyperglycemia, and acute renal injury. She remained at risk for further morbidity and mortality warranting close monitoring and attention while in the ED pending admission/ stabilization.
[2025-04-10 14:12] LABS: Reflex Lactate? Y
[2025-04-10 14:21] LABS: Collection Type, Urine Clean Catch
--- NOTE | 2025-04-10 14:28 | PC.CC ---
Patient is a 69 year-old male who presents to the hospital for Dizziness. Eli FELIX made [id number] contact with patient. ASW introduced self, role, and reason for visit. Patient appeared alert and oriented to self, location, and situation. At bedside was patient's daughter Keke Tinoco who patient provided consent to remain in the room during initial assessment. Patient was pleasant and engaged in initial assessment. Patient confirmed information on demographics and reports that she lives with her son. Patient reports she has a POA which is her daughter Keke this is who would be making patient's medical decision in the event the patient is unable to make her own medical decision. At home patient ambulated independently and completes her own ADLs. Patient does not require any DME. Patient is not a dialysis patient and does not require any oxygen. Patient's primary provider is David Gray and her pharmacy is [facility]. Upon discharge patient plans to return home. enterprise services manager to follow up with any discharge needs.
[2025-04-10 14:31] LABS: Bilirubin,Urine Negative (Negative); Blood,Urine Negative (Negative); Clarity,Urine Clear (Clear/Hazy); Color,Urine Lt-Yellow (Lt Yel-Yel); Glucose, Urine 4+ (Negative); Hyaline Casts,Urine 1 /hpf (0-1); Ketones,Urine 1+ (Negative); Leukocyte Esterase,Urine Positive (Negative); Nitrite,Urine Negative (Negative); Protein,Urine Trace (Neg - Trace); RBC,Urine 1 /hpf (0-3); Renal Epithelial Cells,Urine 1 /hpf (0-5); Specific Gravity,Urine 1.016 (1.001-1.035); Squamous Epithelial Cell,Urine 2 /hpf (0-5); Urobilinogen,Urine Negative mg/dL (0.0-1.0); WBC,Urine 64 /hpf (0-5)
[2025-04-10 14:35] LABS: Lactic Acid, 3 HR 6.2 mMol/L (0.4-2.0)
--- NOTE | 2025-04-10 14:37 | PD.RESHP ---
Documentation for date of: 04/10/25 HPI History of Present Illness Chief complaint: Fall with weakness History of present illness: Sheila is a 69 y/o female with PMHx of hypertension, hyperlipidemia, previous falls, psych disorder (depression/anxiety) comes in for an evaluation after having syncope that occurred when going into the restroom today with prodromal symptoms of diaphoresis and weakness, however with no mechanical trauma to head or other part of body. Patient reports that she has had a history of falls and she says that is partly because of her feeling weak. She says that she notices that she feels weak when she stands up, and that she fell about a couple of weeks ago and [facility]. She said in 2023 she had a fall but did not have syncope and required transfer for surgery as she broke part of her hip in which she has broke part of her hip before as well. 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 She notes that she notices her heart rate increasing when she stands up. She is unsure if her blood pressure changes when she stands up. She does not use home oxygen. She does not use a CPAP. She says she seen Dr. Duarte, integration lead in [place] before for evaluation of blood flow in the lower extremities (which she said that there was some blockages but nothing significant) but does not see a routine integration lead at this time. Her primary care doctor is Dr. Gray. She denies any chest pain, shortness of breath, nausea, vomiting, diarrhea, numbness, tingling. She does say that she has not been eating much lately. She also denies any recent travel or sick contacts. She says she is going to get evaluated for dentures soon by the dentist. She does state that she has been losing a lot of her teeth lately. She lives with one of her sons currently. She is currently using CGM freestyle. No other complaints this time ED Course: Patient came in with a temperature of 97.8, heart rate 96, respiratory rate 18, blood pressure 95/53, saturating 96% on room air. Patient was worked up once found to have a white count of 12.9, hemoglobin 14.6, platelets 248, ABG pH 7.35, ABG bicarb 18, PO287, sodium 138, potassium 3.8, chloride 98, bicarb 19, anion gap of 21, BUN/creatinine of 11 and 1.3 respectively, GFR 45, glucose 406, lactate of 8.9, calcium 9.5, magnesium 2.4, T. bili 0.5, AST ALT 23 and 22 respectively, troponin negative x 1, BNP 51, albumin 3.7, Pro-Sridhar 0.44, beta-hydroxybutyrate 0.3, TSH 1.12, free T4 1.12. EKG showed sinus tachycardia, QTc 469. Chest x-ray was done which showed possible large retrocardiac gastric hernia (seen performed previous chest x-rays). Head CT was negative for acute hemorrhage, infarct or mass effect. Patient was given normal saline 1 L, bolus x 1 scopolamine patch x 1, Zofran x 1, meclizine x 1, 10 units of regular insulin, was started on Levophed which was eventually stopped shortly after. Patient was then given another normal saline 1 L bolus, 1 g of Tylenol, and started on lactated Ringer's maintenance. ICU had been consulted for the patient who provided consultation. Patient was then admitted to telemetry for further management. PMHx: As above Surgeries: 2 hip surgeries on the left, cataract surgery, tubal ligation Meds: BuSpar 10 mg twice daily, Cymbalta 60 mg every day, Lantus 60 units (60 units all at night) simvastatin 40 mg, telmisartan 20 mg every day Allergies: No known allergies Family Hx: Her dad had a stroke at 36 years old, her sister had a stroke in her 60s, her son of pancreatic cancer Social Hx: Born and raised in [place], has never been a heavy drinker, no smoking history, no history of oral or IV drug use. Worked as a [employer] for [address] [employer]. She does not move around too much has had falls previously. Is not bedbound, does not use home oxygen or CPAP. Review of Systems Review of Systems Narrative Review of Systems: 12 point ROS was reviewed and otherwise negative as stated directly in HPI Exam Vital Signs Temp Pulse Resp BP Pulse Ox O2 Del Method 98.2 F 118 H 20 117/63 96 Room Air 04/10/25 10:38 04/10/25 13:25 04/10/25 13:25 04/10/25 13:25 04/10/25 13:25 04/10/25 13:25 Narrative Exam General: AAOx3, NAD, weak appearing female, HEENT: Dry mucous membranes, conjunctiva clear, EOMI, PERRLA, poor dentition Cardiovascular: S1, S2, radial pulses +2 bilat, tachycardic, ejection systolic murmur heard in right upper sternal border that radiates to the carotid, tattoo on left side of chest Pulmonary: CTAB bilat no cough, no wheezing, attached to present on right upper back GI: No tenderness to light or deep palpitation, no guarding, rigidity, rebound tenderness or distension, abdominal obesity Extremities: No presence of trace or pitting edema in lower extremities bilaterally, dorsalis pedis pulses +2 bilaterally Neuro: AAOx3, no focal motor or sensory deficits in the UE or LE bilat Psych: Good judgement, thought and behavior Results: Labs 04/10/25 21:33 04/10/25 20:06 Labs: Short CBC 04/10/25 Range/Units 08:35 WBC 12.9 H (3.6-11.0) Thou/mm3 Hgb 14.6 (12.0-16.0) g/dL Hct 43.3 (36.0-46.0) % Plt Count 248 (140-440) Thou/mm3 BMP 04/10/25 08:35 Sodium 138 Potassium 3.8 Chloride 98 Carbon Dioxide 19.0 L BUN 11 Creatinine 1.3 Glucose 406 H* Calcium 9.3 Cardiac Enzymes 04/10/25 Range/Units 08:35 Troponin I < 0.020 (0.0-0.045) ng/mL Liver Function 04/10/25 Range/Units 08:35 Total Bilirubin 0.5 (0.3-1.2) mg/dL Direct Bilirubin 0.3 (0.0-0.3) mg/dL AST 23 (0-34) U/L ALT 22 (10-49) U/L Alkaline Phosphatase 109 (46-116) U/L Albumin 3.7 (3.4-4.8) gm/dL ABG Interpretation ABG results: 04/10/25 04/10/25 09:48 11:11 ABG pH 7.35 ABG pCO2 33 ABG pO2 87 ABG HCO3 18 L ABG O2 Saturation 97 ABG Base Excess -7 L VBG pH 7.32 L VBG pCO2 35 L VBG pO2 42 VBG Base Excess -7 L Quality Measures Quality Measures none Advance care planning discussed with:: patient Medications Home Medications and Allergies Home Medications ?Medication ?Instructions ?Recorded ?Confirmed ?Type insulin glargine 100 unit/mL 70 unit subcut HS ##0 08/12/14 05/12/21 History subcutaneous solution (Lantus U-100 Insulin) bupropion HCl 300 mg 24 hr tablet, 300 mg PO QAM 02/04/19 05/12/21 History extended release (Wellbutrin XL) metformin 500 mg tablet 500 mg PO BID 02/04/19 05/12/21 History doxepin 50 mg capsule 50 mg PO HS 07/31/20 05/12/21 History duloxetine 30 mg capsule,delayed 60 mg PO QDAY 07/31/20 05/12/21 History release nadolol 40 mg tablet 40 mg PO QDAY 07/31/20 05/12/21 History simvastatin 40 mg tablet 40 mg PO HS 07/31/20 05/12/21 History telmisartan 20 mg tablet 20 mg PO QDAY 07/31/20 05/12/21 History Allergies Allergy/AdvReac Type Severity Reaction Status Date / Time No Known Allergies Allergy Verified 05/11/21 21:16 Visit Medications Acetaminophen (Acetaminophen 500 Mg Tablet) 1,000 mg PO Q6H PRN PRN Reason: Fever >99.9 or pain 1-3 Stop: 05/10/25 12:00 Dextrose (Dextrose 50%-Water Inj 50 Ml Syringe) 25 ml IV Q15MIN PRN PRN Reason: BG 50-70 responsive npo pt Stop: 05/10/25 14:32 Dextrose (Dextrose 50%-Water Inj 50 Ml Syringe) 50 ml IV Q15MIN PRN PRN Reason: BG <50 OR BG <70 & pt unresponsive Stop: 05/10/25 14:32 Enoxaparin Sodium (Enoxaparin Sod Inj 40 Mg/0.4 Ml Syringe) 40 mg SC QDAY [facility] Stop: 04/25/25 08:59 Glucagon (Glucagon Inj 1 Mg Vial) 1 mg IM Q15MIN PRN PRN Reason: BG <70, and no IV access Norepinephrine Bitartrate (Levophed In Ns 16mg/250ml) 16 mg in 250 mls @ 2.977 mls/hr IV .Q24H PRN; Protocol PRN Reason: PER PROTOCOL Stop: 05/10/25 10:41 Last Titration: 04/10/25 13:13 Dose: 0 mcg/kg/min, 0 mls/hr Lactated Ringer's (Lactated Ringers) 1,000 mls @ 100 mls/hr IV .Q10H HAYDEN Stop: 05/10/25 12:52 Last Admin: 04/10/25 14:02 Dose: 100 mls/hr Insulin Human Lispro (Insulin Lispro (Admelog) 1 Unit/0.01 Ml Unit) 0 unit SC AC HAYDEN; Protocol Stop: 05/10/25 16:59 Levalbuterol HCl (Levalbuterol Rt 0.63 Mg/3 Ml Nebu) 0.63 mg INH Q6HRRT PRN PRN Reason: wheezing Stop: 05/10/25 18:59 Ondansetron HCl (Ondansetron Inj 2 Mg/Ml Inj 2 Ml) 4 mg IVP Q6H PRN; Protocol PRN Reason: NAUSEA OR VOMITING Stop: 05/10/25 12:00 Discontinued Medications Acetaminophen (Acetaminophen 500 Mg Tablet) 1,000 mg PO Q6H PRN PRN Reason: Fever >99.9 Stop: 05/10/25 12:00 Last Admin: 04/10/25 14:02 Dose: 1,000 mg Sodium Chloride (Ns) 1,000 mls @ 999 mls/hr IV .Q1H1M ONE Stop: 04/10/25 09:09 Last Infusion: 04/10/25 09:35 Dose: Infused Sodium Chloride (Ns) 1,000 mls @ 999 mls/hr IV .Q1H1M ONE Stop: 04/10/25 11:37 Last Infusion: 04/10/25 13:17 Dose: Infused Sodium Chloride (Ns) 1,000 mls @ 999 mls/hr IV .Q1H1M ONE Stop: 04/10/25 13:52 Last Admin: 04/10/25 13:13 Dose: 999 mls/hr Insulin Human Regular (Insulin Hum Regular 1 Unit/0.01 Ml (Per Unit)) 10 unit IV X1 ONE Stop: 04/10/25 09:30 Last Admin: 04/10/25 10:48 Dose: 10 unit Meclizine HCl (Meclizine Hcl 25 Mg Tablet) 25 mg PO X1 ONE Stop: 04/10/25 08:10 Last Admin: 04/10/25 09:15 Dose: 25 mg Ondansetron HCl (Ondansetron Inj 2 Mg/Ml Inj 2 Ml) 4 mg IVP X1 ONE; Protocol Stop: 04/10/25 08:10 Last Admin: 04/10/25 09:14 Dose: 4 mg Scopolamine (Scopolamine 1 Mg Tdsy) 1 mg TOP X1 ONE Stop: 04/10/25 08:10 Last Admin: 04/10/25 09:14 Dose: 1 mg Assessment & Plan Plan Assessment Sheila is a 69 y/o female with PMHx of hypertension, hyperlipidemia, previous falls, psych disorder (depression/anxiety) who was admitted for an evaluation of syncope, EDIE on CKD, and high anion gap metabolic acidosis. #Acute kidney injury #High anion gap metabolic acidosis with respiratory alkalosis #Lactic acidosis type A, etiology still remains unclear #Leukocytosis DDx: Prerenal, dehydration No history of stones Likely related to hypovolemia as patient has had poor oral intake and appears dry Anion gap of 21, bicarb 19, initial lactate was 8.9, currently 6.2 Patient does not appear to have CKD, baseline creatinine seems to be 0.8, creatinine today is 1.3 Suspected CO2 compensation should be 33-37, pCO2 on ABG was 33 as this is an appropriate compensation pattern No infectious source at this point, patient did have slight leukocytosis, but this is probably related to dehydration IVC seems collapsible on bedside ultrasound, likely related to dehydration Will give more fluid, unsure of hx of HF at this time Plan: ? Maintenance lactated Ringer's 100 cc an hour ? Normal saline bolus 1 L ? Lactic acid every 6 hours ? Renal panel at 8 PM ? Avoid nephrotoxic agents ? Renally dose medicines ? Urine lytes and creatinine Empiric antibiotics initiated ? Trend CMP and lytes ? Encourage oral hydration #Syncope DDx: Orthostasis, aortic stenosis, metabolic disturbances, seizure, POTS Patient does have history of syncope Patient did have a possible murmur heard on auscultation Aortic stenosis can cause syncope at times Plan: ? Will do orthostatic vitals once patient's blood pressure improves ? Telemetry ? Keep magnesium potassium above 2 and 4 respectively ? Consider neurology consult #Hypotension #Tachycardia Tachycardia present, likely proper response for dehydration and hypotension Hypotension likely related to hypovolemia Was briefly on Levophed, however was taken off and blood pressure improved with fluids Unsure if patient has history of heart failure Plan: ? Telemetry ? Treat as above ? Maintenance fluids ? May consider echo #Hyperglycemia #Insulin-dependent type 2 diabetes mellitus A1c of 7.7 Patient uses Lantus 60 units at home Patient came in with blood sugar of over 400, anion gap present, beta hydroxybutyrate negative Plan: ? Sliding scale insulin ? Hypoglycemic protocol in place ? Blood sugar checks with meals ? Will resume Lantus at night ? Blood sugar check now #Hypertension #Hyperlipidemia Chronic Plan: ? Holding blood pressure medicines as blood pressures soft at this point ? Resumed home Lipitor 20 mg at bedtime ? Cardiac stratification #History of depression #History of anxiety Chronic Plan: ? Resume home BuSpar, Cymbalta, trazodone #History of large retrocardiac gastric hernia Seen on previous chest x-ray in 2019 Abdominal exam unremarkable at this time This could be a site of ulceration and bleeding, however hemoglobin is stable at this time, but it could be falsely elevated in the setting of dehydration Plan: ? Consider CT abdomen pelvis ? Repeat H&H at 8 PM #Health Maintenance Disposition: Telemetry DVT prophylaxis: Heparin GI prophylaxis: None Indicated at this time Diet: Carb Low CODE STATUS: Full Patient seen and care discussed with my attending physician, Dr. Isaac Melo, PGY-1 Attending Provider Attestation/Addendum Patient seen and examined with resident physician Dr. Rosario. Note reviewed, agree with findings and recommendations. Patient currently seen in emergency department. Daughter Sydni at bedside. Patient with a significant lactic acidosis question related to hypovolemia/hypotension. Started to respond well to IV fluids. Initially ICU admission was thought off-was started on pressors and after 4 L of fluids patient came off pressors. Was subsequently admitted to telemetry. Empiric antibiotics were given. Pending cultures.
[2025-04-10 14:38] LABS: Culture Indicated,Urine Yes
[2025-04-10] MEDS: POTASSIUM CHLORIDE 20 mEq TABCR PO (15:33)
--- NOTE | 2025-04-10 15:45 | PC.NURSE ---
1522 PTS BP DROPPED TO 79/58 MD LOVE AT BEDSIDE, GAVE VERBAL FOR BOLUS OF NS 1L AND REPEAT LACTIC. SPOKE W/MD CARTER UPDATED HIM WELL, NO NEW ORDERS AT THIS TIME. MD CARTER TO CALL BACK
--- NOTE | 2025-04-10 16:07 | PC.NURSE ---
CALLED MD CARTER AT THIS TIME, PTS BP IS 85/58, (MAP 63). NO NEW ORDERS AT THIS TIME, MD TO COME SEE PT.
[2025-04-10 16:12] LABS: Chloride,Urine Random 30.1 mMol/L (55.0-125.0); Creatinine,Random Urine 48 mg/dL (30-125); Potassium,Urine Random 42 mMol/L (12-62); Sodium,Urine Random 56.4 mMol/L (20.0-110.0)
[2025-04-10 16:17] LABS: Lactate (Lactic Acid) 6.2 mMol/L (0.4-2.0)
[2025-04-10] MEDS: RINGERS LACTATED 1000 ML 1,000 ML 999 ML IV ×3 (16:27→21:05)
--- NOTE | 2025-04-10 17:06 | PC.NURSE ---
PT TAKEN TO FLOOR ON TELE BY THIS RN AND [employer] RESEARCH ANIMAL FACILITY SUPERVISOR, W/O INCIDENT, STAFF AT BEDSIDE TO ASSUME CARE
--- NOTE | 2025-04-10 17:08 | XR_ITS ---
Examination: CT abdomen and pelvis without contrast. Coronal 3-D reconstructions. Sagittal 2-D reconstructions. Date and time of exam:April 10, 2025 1045 hours INDICATIONS: Abdominal pain today CTDI: vol (mGy): 11.7 DLP: (mGycm): 629 Technique: Axial images of the abdomen have been obtained, 3 mm slice thickness Intravenous contrast material has not been administered. Low dose protocols were performed. One or more of the following dose reduction techniques were used; automated exposure control, adjustment of the mA and/or KV according to patient size, use of iterative reconstruction technique. 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 Colonic diverticulosis, no diverticulitis
[2025-04-10] MEDS: MIDODRINE 5 MG TABLET 10 MG PO (17:17)
[2025-04-10] MEDS: HYDROcodone/APAP 5/325 TABLET 1 TAB PO (17:50)
--- NOTE | 2025-04-10 18:25 | XR_ITS ---
Examination: Forearm, right, 2 views. Technique: Forearm, AP, lateral 2 views Date and time of exam: April 10, 2025 1831 hours INDICATIONS: Patient fell today with injury to the forearm, forearm pain FINDINGS: Acute fracture radial head, minimal off set Shaft of the radius and ulna are intact IMPRESSION: Acute fracture radial head
[2025-04-10 18:43] LABS: Reflex Lactate? Y
[2025-04-10 19:31] LABS: Lactic Acid, 3 HR 9.7 mMol/L (0.4-2.0)
[2025-04-10 20:28] LABS: Basophils % (Auto) 0 % (0-2.5); Eosinophils % (Auto) 0 % (0-10); Hematocrit 35.3 % (36.0-46.0); Hemoglobin 11.3 g/dL (12.0-16.0); Immature Granulocytes % (Auto) 2 % (0-0); Immature Granulocytes Auto 0.31 Thou/mm3 (0.00-0.00); Lactate (Lactic Acid) 9.8 mMol/L (0.4-2.0); Lymphocytes % (Auto) 6 % (10-50); Mean Corpuscular Hemoglobin 31.6 pg (25.0-35.0); Mean Corpuscular Volume 99 fL (80-100); Monocytes # (Auto) 1.3 Thou/mm3 (0.0-0.8); Monocytes % (Auto) 8 % (0-12); Neutrophils # (Auto) 14.6 Thou/mm3 (1.8-7.7); Neutrophils % (Auto) 85 % (37-80); Nucleated Red Blood Cell % 0 /100 WBC (0); Platelet Count 237 Thou/mm3 (140-440); RDW Standard Deviation 46.2 fL (36.4-46.3); Red Blood Count 3.58 Miln/mm3 (4.00-5.20); White Blood Count 17.2 Thou/mm3 (3.6-11.0)
[2025-04-10 21:02] LABS: Albumin, Serum 2.9 gm/dL (3.4-4.8); Anion Gap 17 (7-16); BUN/Creatinine Ratio 13 Ratio (12-20); Blood Urea Nitrogen 13 mg/dL (9-23); Calcium 7.9 mg/dL (8.3-10.6); Calcium (Corrected) 8.8 mg/dL (8.5-10.1); Carbon Dioxide 15.1 mMol/L (20.0-31.0); Chloride 106 mMol/L (98-107); Glucose 319 mg/dL (74-106); Osmolality,Calculated 287 (275-295); Phosphorous 3.2 mg/dL (2.4-5.1); Sodium 138 mMol/L (136-145); eGFR > 60 See Note
--- NOTE | 2025-04-10 21:28 | XR_ITS ---
Examination: CT brain head without contrast. 2-D sagittal coronal reconstructions Date and time of exam:April 10, 2025 1043 hours Comparison April 10, 2025 0847 hours INDICATIONS: Altered mental status today CTDI: vol (mGy):45 DLP: (mGycm):926 Technique: Multiple CT axial sections of the brain have been obtained, 5 mm slice thickness. Contrast has not been administered. 2-D sagittal, coronal reconstructions have been obtained Low dose protocols were performed. One or more of the following dose reduction techniques were used; automated exposure control, adjustment of the mA and/or KV according to patient size, use of iterative reconstruction technique. Findings: The examination is severely degraded by patient motion Ventricles are not enlarged No interval gross hemorrhage mass effect or midline shift IMPRESSION: No interval gross hemorrhage mass effect or midline shift
--- NOTE | 2025-04-10 21:34 | XR_ITS ---
Examination: AP chest single view Technique one AP portable semiupright chest single view Date and time: April 10, 2025 2144 hours Comparison April 10, 2025 0857 hours INDICATIONS: Weakness shortness of breath today FINDINGS: The film is rotated severely RPO which accentuates the left pulmonary vasculature Large retrocardiac hernia IMPRESSION: Nondiagnostic chest x-ray, repeat without rotation
[2025-04-10 21:44] LABS: Lactate (Lactic Acid) 9.4 mMol/L (0.4-2.0)
[2025-04-10 21:45] LABS: Basophils % (Auto) 0 % (0-2.5); Eosinophils % (Auto) 0 % (0-10); Hematocrit 34.6 % (36.0-46.0); Hemoglobin 11.5 g/dL (12.0-16.0); Immature Granulocytes % (Auto) 1 % (0-0); Immature Granulocytes Auto 0.21 Thou/mm3 (0.00-0.00); Lymphocytes # (Auto) 1.1 Thou/mm3 (1.0-4.8); Lymphocytes % (Auto) 6 % (10-50); Mean Corpuscular HGB Conc 33.2 g/dl (31.0-37.0); Mean Corpuscular Hemoglobin 31.9 pg (25.0-35.0); Mean Corpuscular Volume 96 fL (80-100); Monocytes # (Auto) 1.3 Thou/mm3 (0.0-0.8); Monocytes % (Auto) 7 % (0-12); Neutrophils # (Auto) 15.3 Thou/mm3 (1.8-7.7); Neutrophils % (Auto) 85 % (37-80); Nucleated Red Blood Cell % 0 /100 WBC (0); Platelet Count 233 Thou/mm3 (140-440); RDW Standard Deviation 45.6 fL (36.4-46.3)
[2025-04-10 21:47] LABS: Base Excess -11 (-3-3); HCO3 12 mEq/L (20-26); Inspired Oxygen, FIO2 21 %; O2 Saturation 100 % (91-98); PCO2 21 mmHg (32.0-48.0); PO2 146 mmHg (83-108); pH, Arterial 7.39 (7.35-7.45)
[2025-04-10 21:48] LABS: Allen Test Not Performed; Puncture Site Left Radial
[2025-04-10] MEDS: INSULIN LISPRO (AdmeLOG) 1 UNIT/0.01 ML UNIT 4 UNIT SC (21:53)
[2025-04-10] MEDS: PIPER/TAZO 3.375 GM PREMIX 3.375 GM/50 ML BAG IV (22:13)
[2025-04-10] MEDS: KETOROLAC INJ 30 MG/ML VIAL IVP (22:14)
--- NOTE | 2025-04-10 22:43 | PD.RESEVENT ---
Documentation for date of: 04/10/25 Event Note Event Note: Rapid response was called: Room: 265 Time: 2122 Reason for Call: Change in mentation Patient presentation: Vitals on arrival 97/54, heart rate 115. I was called as patient had change in mentation. Per the daughter who was at bedside patient's baseline AAO x 3, however on my evaluation patient was AAO x 1 only to name. Patient had equal strength across all 4 extremities, pupils reactive to light bilaterally, intact sensation, fingertips on all 4 extremities are cold, with delayed capillary refill which could be interfering with oxygen saturation readings from pulse ox, when changing pulse ox saturations increase to >90% Orders: Head CT, ordered 500 mL additional bolus of lactated Ringer's, ordered CBC, CMP, lactic acid, ABG Assessment: Acute encephalopathy likely secondary to septic process in setting of lactic acidosis from hypovolemia/sepsis Re-evaluation: Head CT came back negative for acute hemorrhage, midline shift, mass effect. CT abdomen pelvis shows some left base pneumonia and diverticulosis. Repeat labs show uptrending WBCs, bicarbonate trending down on reevaluation mentation seems to have improved currently AAO x 2 can state her name and place. Will continue with IV hydration at this time as blood pressure seems to be stable with systolic in the 117 and patient looks clinically dry, trend lactic acid and started vancomycin and continue to follow up cultures. Concern for stroke is lower on the differentials but nonetheless will order MRI, aspirin, high intensity statin while awaiting MRI results. Case discussed with my attending Dr. Haja Gould MD PGY-1
[2025-04-10 22:52] LABS: Alanine Aminotransferase 25 U/L (10-49); Albumin, Serum 2.9 gm/dL (3.4-4.8); Albumin/Globulin Ratio 1.7 (1.2-2.2); Alkaline Phosphatase 86 U/L (46-116); Anion Gap 17 (7-16); Aspartate Amino Transferase 34 U/L (0-34); BUN/Creatinine Ratio 12 Ratio (12-20); Bilirubin,Total 0.3 mg/dL (0.3-1.2); Blood Urea Nitrogen 13 mg/dL (9-23); Calcium 8.2 mg/dL (8.3-10.6); Calcium (Corrected) 9.1 mg/dL (8.5-10.1); Carbon Dioxide 13.6 mMol/L (20.0-31.0); Chloride 105 mMol/L (98-107); Creatinine (Component) 1.1 mg/dL (0.6-1.3); Estimated Creatinine Clearance 49.1 mL/min (>60); Globulin 1.7 gm/dL (2.3-3.5); Glucose 337 mg/dL (74-106); Osmolality,Calculated 285 (275-295); Sodium 136 mMol/L (136-145); Total Protein 4.6 gm/dL (5.7-8.2); eGFR 55 See Note
[2025-04-10 23:21] LABS: Reflex Lactate? Y
[2025-04-10] MEDS: VANCOMYCIN/NS 1 GM IVPB 200 ML IV (23:56)
[2025-04-11] VITALS (8 sets, daily range): BP systolic 94–125; BP diastolic 49–64; PULSE 74–110; RESP 17–98; TEMP 36.7–37.5; O2SAT 95–100; BMI 23.7; BMI 23.8
--- NOTE | 2025-04-11 | XR_ITS ---
Examination: MRI brain without intravenous contrast. Date and time of exam: April 11, 2025 1005 hours Comparison February 24, 2022 INDICATIONS: Altered mental status beginning yesterday with syncopal episode Technique: Multiple axial and sagittal images of the brain obtained. Siemens high-resolution 1.5 Jaclyn short bore scanners utilized. Sagittal sections, T1-weighted, TR 500, TE 14, are performed. Axial sections proton-density and T2-weighted have been obtained. Inversion recovery axial images, TR 9, 260, TE 111, TI 2500. Diffusion weighted images, axial sections, TR 4800, TE 128, B value 1000 Axial sections, ADC map, TR 4800, TE 128 Findings: Enlargement of the sella turcica is not present. The optic chiasm and infundibular are not remarkable. Prepontine and interpeduncular cisterns are not enlarged. There is no localized enlargement of the medulla or flavia. Fourth ventricle and cerebellar tonsils appear normal in position. No subacute area of hemorrhage density is seen. Mass in the cerebellopontine angle region is not evident. Globes symmetrical. Orbital musculature including medial lateral rectus muscles do not exhibit abnormality. Diffusion-weighted images demonstrate no focus of restricted diffusion. Increased white matter signal moderate Mass effect upon the ventricular system is not identified. Impression: Negative for acute hemorrhage mass effect or midline shift No acute infarct Moderate chronic microvascular white matter change
[2025-04-11] MEDS: SODIUM CHLORIDE 0.9% 1000 ML 1,000 ML 125 ML IV ×2 (00:26→08:09)
[2025-04-11 00:40] LABS: Reflex Lactate? Y
[2025-04-11] MEDS: INSULIN LISPRO (AdmeLOG) 1 UNIT/0.01 ML UNIT 4 UNIT SC (00:49)
[2025-04-11 02:30] LABS: Lactate (Lactic Acid) 1.9 mMol/L (0.4-2.0)
[2025-04-11 05:36] LABS: Basophils % (Auto) 0 % (0-2.5); Eosinophils % (Auto) 0 % (0-10); Hematocrit 34.7 % (36.0-46.0); Hemoglobin 11.4 g/dL (12.0-16.0); Immature Granulocytes % (Auto) 1 % (0-0); Immature Granulocytes Auto 0.07 Thou/mm3 (0.00-0.00); Lymphocytes # (Auto) 1.6 Thou/mm3 (1.0-4.8); Lymphocytes % (Auto) 12 % (10-50); Mean Corpuscular HGB Conc 32.9 g/dl (31.0-37.0); Mean Corpuscular Hemoglobin 31.8 pg (25.0-35.0); Mean Corpuscular Volume 97 fL (80-100); Monocytes # (Auto) 1.2 Thou/mm3 (0.0-0.8); Monocytes % (Auto) 9 % (0-12); Neutrophils # (Auto) 10.1 Thou/mm3 (1.8-7.7); Neutrophils % (Auto) 78 % (37-80); Nucleated Red Blood Cell % 0 /100 WBC (0); Platelet Count 206 Thou/mm3 (140-440); Red Blood Count 3.58 Miln/mm3 (4.00-5.20)
[2025-04-11 05:43] LABS: INR 1.3 (0.9-1.3); Partial Thromboplastin Time 25.9 Seconds (22.0-36.0); Prothrombin Time 13.5 Seconds (9.0-12.2)
[2025-04-11 05:47] LABS: Lactate (Lactic Acid) 1.5 mMol/L (0.4-2.0)
[2025-04-11] MEDS: PIPER/TAZO 3.375 GM PREMIX 3.375 GM/50 ML BAG IV ×3 (06:23→21:08)
[2025-04-11 06:32] LABS: Alanine Aminotransferase 29 U/L (10-49); Albumin, Serum 2.9 gm/dL (3.4-4.8); Albumin/Globulin Ratio 1.7 (1.2-2.2); Alkaline Phosphatase 80 U/L (46-116); Anion Gap 8 (7-16); Aspartate Amino Transferase 46 U/L (0-34); BUN/Creatinine Ratio 16 Ratio (12-20); Bilirubin,Total 0.2 mg/dL (0.3-1.2); Blood Urea Nitrogen 19 mg/dL (9-23); Calcium 8.1 mg/dL (8.3-10.6); Carbon Dioxide 22.6 mMol/L (20.0-31.0); Cardiac Risk Estimate 1.9 RATIO (3.7-5.6); Chloride 106 mMol/L (98-107); Cholesterol 93 mg/dL (132-200); Creatinine (Component) 1.2 mg/dL (0.6-1.3); Estimated Creatinine Clearance 46.9 mL/min (>60); Globulin 1.7 gm/dL (2.3-3.5); Glucose 228 mg/dL (74-106); HDL Cholesterol 50 mg/dL (40-60); LDL Cholesterol,Calculated 27 mg/dL (0-130); Magnesium 2.1 mg/dL (1.6-2.6); Osmolality,Calculated 283 (275-295); Phosphorous 2.8 mg/dL (2.4-5.1); Potassium 4.5 mMol/L (3.4-5.1); Sodium 137 mMol/L (136-145); Total Protein 4.6 gm/dL (5.7-8.2); Triglycerides 80 mg/dL (30-150); eGFR 49 See Note
[2025-04-11] MEDS: BusPIRone HCL 5 MG TABLET 10 MG PO ×2 (08:08→21:06)
[2025-04-11] MEDS: ASPIRIN EC 81 MG TABEC PO (08:08)
[2025-04-11] MEDS: DULoxetine HCL 30 MG CAPSULE 60 MG PO (08:08)
[2025-04-11] MEDS: INSULIN LISPRO (AdmeLOG) 1 UNIT/0.01 ML UNIT SC ×3 (08:09→17:33)
[2025-04-11] MEDS: HEPARIN SOD INJ 5000 UNIT/ML VIAL SC ×2 (08:09→21:06)
[2025-04-11 08:25] LABS: Lactate (Lactic Acid) 1.2 mMol/L (0.4-2.0)
--- NOTE | 2025-04-11 09:16 | PD.RESPRO ---
Documentation for date of: 04/11/25 Subjective Subjective Interval history: Sheila is a 69 y/o female with PMHx of hypertension, hyperlipidemia, previous falls, psych disorder (depression/anxiety) comes in for an evaluation after having syncope that occurred when going into the restroom today with prodromal symptoms of diaphoresis and weakness, however with no mechanical trauma to head or other part of body. Patient reports that she has had a history of falls and she says that is partly because of her feeling weak. She says that she notices that she feels weak when she stands up, and that she fell about a couple of weeks ago and bruised up her arm when she was at the [facility]. She said in 2023 she had a fall but did not have syncope and required transfer for surgery as she broke part of her hip in which she has broke part of her hip before as well. 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 She notes that she notices her heart rate increasing when she stands up. She is unsure if her blood pressure changes when she stands up. She does not use home oxygen. She does not use a CPAP. She says she seen Dr. Duarte, [employer] operations consultant in [place] before for evaluation of blood flow in the lower extremities (which she said that there was some blockages but nothing significant) but does not see a routine [employer] operations consultant at this time. Her primary care doctor is Dr. Gray. She denies any chest pain, shortness of breath, nausea, vomiting, diarrhea, numbness, tingling. She does say that she has not been eating much lately. She also denies any recent travel or sick contacts. She says she is going to get evaluated for dentures soon by the dentist. She does state that she has been losing a lot of her teeth lately. She lives with one of her sons currently. She is currently using CGM freestyle. No other complaints this time 04/11/2025 The patient is evaluated at the bedside, overnight she was delirious, now mental status is at baseline aox3, reported no acute discomfort except right elbow joint pain, Xray had shown acute right radial head fracture, elbow brace ordered. Patient has good mobility of her upper extremity, pain well-controlled. Was seen eating her breakfast with right hand with minimal discomfort. The patient has received 5 L IV fluid, no documented urine output, strict ins and output orders in place, per RN patient had 400 mL urine output during the day so far, patient does seem visibly edematous with facial puffiness. CT abdomen pelvis showed retrocardiac gastric hernia, and pneumonia. Lactic acidosis continue to worsen throughout the night until resolving after repeated fluid boluses, now lactic acid 1.5. On midodrine maintaining vitals. Hemoglobin did drop down from 14 g to 11 g, possible dilutional versus GI bleed, pending stool occult. Sodium 137, potassium 4.5, bicarb 22, BUN 19, creatinine 1.2, anion gap 8, lactic acid 1.5. Exam Vital Signs Temp Pulse Resp BP Pulse Ox O2 Del Method O2 Flow Rate 98.5 F 88 22 H 107/49 L 100 Nasal Cannula 1 04/11/25 08:00 04/11/25 08:00 04/11/25 08:00 04/11/25 08:00 04/11/25 08:00 04/11/25 08:00 04/11/25 08:00 Narrative Exam General: AAOx3, NAD, weak appearing female, noted facial puffiness. HEENT: Dry mucous membranes, conjunctiva clear, EOMI, PERRLA, poor dentition Cardiovascular: S1, S2, radial pulses +2 bilat, tachycardic, ejection systolic murmur heard in right upper sternal border that radiates to the carotid, tattoo on left side of chest Pulmonary: CTAB bilat no cough, no wheezing, attached to present on right upper back GI: No tenderness to light or deep palpitation, no guarding, rigidity, rebound tenderness or distension, abdominal obesity Extremities: Trace pedal edema in lower extremities bilaterally, dorsalis pedis pulses +2 bilaterally, mild to moderate tenderness right elbow joint. Neuro: AAOx3, no focal motor or sensory deficits in the UE or LE bilat Psych: Good judgement, thought and behavior Objective Labs 04/13/25 05:29 04/13/25 05:29 Labs: Laboratory Results - last 24 hr 04/10/25 04/10/25 04/10/25 08:35 09:48 11:03 WBC RBC Hgb Hct MCV MCH MCHC RDW Std Deviation Plt Count Neut % (Auto) Lymph % (Auto) Centre % (Auto) Eos % (Auto) Baso % (Auto) Neut # (Auto) Lymph # (Auto) Centre # (Auto) Eos # (Auto) Baso # (Auto) Immature Gran # (Auto) Absolute Nucleated RBC Immature Gran % Nucleated RBC % ESR 4 PT INR APTT Puncture Site ABG pH ABG pCO2 ABG pO2 ABG HCO3 ABG O2 Saturation ABG Base Excess VBG pH 7.32 L VBG pCO2 35 L VBG pO2 42 VBG O2 Sat (Juan Alberto) 73 L VBG Base Excess -7 L FiO2 Sodium 138 Potassium 3.8 Chloride 98 Carbon Dioxide 19.0 L Anion Gap 21 H BUN 11 Creatinine 1.3 Estim Creat Clear Calc 41.5 L eGFR 45 L BUN/Creatinine Ratio 8 L Glucose 406 H* Estimated Ave Glu mg/dL 174 H Hemoglobin A1c 7.7 H Calculated Osmolality 292 Lactic Acid 8.5 H* Calcium 9.3 Corrected Calcium 9.5 Phosphorus Magnesium 2.4 Total Bilirubin 0.5 Direct Bilirubin 0.3 AST 23 ALT 22 Alkaline Phosphatase 109 Troponin I < 0.020 C-Reactive Prot, Quant < 0.5 Total Protein 5.9 Albumin 3.7 Globulin 2.2 L Albumin/Globulin Ratio 1.7 Triglycerides Cholesterol LDL Cholesterol, Calc HDL Cholesterol Cholesterol/HDL Ratio Beta-Hydroxybutyrate/Acetoacetate 0.3 Procalcitonin 0.44 TSH 1.12 Free T4 1.12 Ur Collection Type Urine Color Urine Clarity Urine pH Ur Specific [place] Urine Protein Urine Glucose (UA) Urine Ketones Urine Blood Urine Nitrite Urine Bilirubin Urine Urobilinogen (Auto) Ur Leukocyte Esterase Urine RBC Urine WBC Ur Squamous Epith Cells Ur Renal Epithelial Cell Urine Bacteria Hyaline Casts Ur Culture Indicated? Ur Random Creatinine Ur Random Sodium Ur Random Potassium Ur Random Chloride 04/10/25 04/10/25 04/10/25 11:11 14:12 14:22 WBC RBC Hgb Hct MCV MCH MCHC RDW Std Deviation Plt Count Neut % (Auto) Lymph % (Auto) Centre % (Auto) Eos % (Auto) Baso % (Auto) Neut # (Auto) Lymph # (Auto) Centre # (Auto) Eos # (Auto) Baso # (Auto) Immature Gran # (Auto) Absolute Nucleated RBC Immature Gran % Nucleated RBC % ESR PT INR APTT Puncture Site Right Radial ABG pH 7.35 ABG pCO2 33 ABG pO2 87 ABG HCO3 18 L ABG O2 Saturation 97 ABG Base Excess -7 L VBG pH VBG pCO2 VBG pO2 VBG O2 Sat (Juan Alberto) VBG Base Excess FiO2 21 Sodium Potassium Chloride Carbon Dioxide Anion Gap BUN Creatinine Estim Creat Clear Calc eGFR BUN/Creatinine Ratio Glucose Estimated Ave Glu mg/dL Hemoglobin A1c Calculated Osmolality Lactic Acid 6.2 H* Calcium Corrected Calcium Phosphorus Magnesium Total Bilirubin Direct Bilirubin AST ALT Alkaline Phosphatase Troponin I C-Reactive Prot, Quant Total Protein Albumin Globulin Albumin/Globulin Ratio Triglycerides Cholesterol LDL Cholesterol, Calc HDL Cholesterol Cholesterol/HDL Ratio Beta-Hydroxybutyrate/Acetoacetate Procalcitonin TSH Free T4 Ur Collection Type Clean Catch Urine Color Lt-Yellow Urine Clarity Clear Urine pH 6.0 Ur Specific [place] 1.016 Urine Protein Trace Urine Glucose (UA) 4+ A Urine Ketones 1+ A Urine Blood Negative Urine Nitrite Negative Urine Bilirubin Negative Urine Urobilinogen (Auto) Negative Ur Leukocyte Esterase Positive Urine RBC 1 Urine WBC 64 H Ur Squamous Epith Cells 2 Ur Renal Epithelial Cell 1 Urine Bacteria None Hyaline Casts 1 Ur Culture Indicated? Yes Ur Random Creatinine 48 Ur Random Sodium 56.4 Ur Random Potassium 42 Ur Random Chloride 30.1 L 04/10/25 04/10/25 04/10/25 15:36 19:11 20:06 WBC 17.2 H RBC 3.58 L Hgb 11.3 L D Hct 35.3 L MCV 99 MCH 31.6 MCHC 32.0 RDW Std Deviation 46.2 Plt Count 237 Neut % (Auto) 85 H Lymph % (Auto) 6 L Centre % (Auto) 8 Eos % (Auto) 0 Baso % (Auto) 0 Neut # (Auto) 14.6 H Lymph # (Auto) 1.0 Centre # (Auto) 1.3 H Eos # (Auto) 0.0 Baso # (Auto) 0.0 Immature Gran # (Auto) 0.31 H Absolute Nucleated RBC 0.00 Immature Gran % 2 H Nucleated RBC % 0 ESR PT INR APTT Puncture Site ABG pH ABG pCO2 ABG pO2 ABG HCO3 ABG O2 Saturation ABG Base Excess VBG pH VBG pCO2 VBG pO2 VBG O2 Sat (Juan Alberto) VBG Base Excess FiO2 Sodium 138 Potassium 4.0 Chloride 106 Carbon Dioxide 15.1 L Anion Gap 17 H BUN 13 Creatinine 1.0 Estim Creat Clear Calc 54.0 L eGFR > 60 BUN/Creatinine Ratio 13 Glucose [address] Glu mg/dL Hemoglobin A1c Calculated Osmolality 287 Lactic Acid 6.2 H* 9.7 H* 9.8 H* Calcium 7.9 L Corrected Calcium 8.8 Phosphorus 3.2 Magnesium Total Bilirubin Direct Bilirubin AST ALT Alkaline Phosphatase Troponin I C-Reactive Prot, Quant Total Protein Albumin 2.9 L D Globulin Albumin/Globulin Ratio Triglycerides Cholesterol LDL Cholesterol, Calc HDL Cholesterol Cholesterol/HDL Ratio Beta-Hydroxybutyrate/Acetoacetate Procalcitonin TSH Free T4 Ur Collection Type Urine Color Urine Clarity Urine pH Ur Specific [place] Urine Protein Urine Glucose (UA) Urine Ketones Urine Blood Urine Nitrite Urine Bilirubin Urine Urobilinogen (Auto) Ur Leukocyte Esterase Urine RBC Urine WBC Ur Squamous Epith Cells Ur Renal Epithelial Cell Urine Bacteria Hyaline Casts Ur Culture Indicated? Ur Random Creatinine Ur Random Sodium Ur Random Potassium Ur Random Chloride 04/10/25 04/10/25 04/11/25 21:33 21:37 02:23 WBC 18.0 H RBC 3.60 L Hgb 11.5 L Hct 34.6 L MCV 96 MCH 31.9 MCHC 33.2 RDW Std Deviation 45.6 Plt Count 233 Neut % (Auto) 85 H Lymph % (Auto) 6 L Centre % (Auto) 7 Eos % (Auto) 0 Baso % (Auto) 0 Neut # (Auto) 15.3 H Lymph # (Auto) 1.1 Centre # (Auto) 1.3 H Eos # (Auto) 0.0 Baso # (Auto) 0.0 Immature Gran # (Auto) 0.21 H Absolute Nucleated RBC 0.00 Immature Gran % 1 H Nucleated RBC % 0 ESR PT INR APTT Puncture Site Left Radial ABG pH 7.39 ABG pCO2 21 L D ABG pO2 146 H D ABG HCO3 12 L ABG O2 Saturation 100 H ABG Base Excess -11 L VBG pH VBG pCO2 VBG pO2 VBG O2 Sat (Juan Alberto) VBG Base Excess FiO2 21 Sodium 136 Potassium 4.0 Chloride 105 Carbon Dioxide 13.6 L* Anion Gap 17 H BUN 13 Creatinine 1.1 Estim Creat Clear Calc 49.1 L eGFR 55 L BUN/Creatinine Ratio 12 Glucose [address] Glu mg/dL Hemoglobin A1c Calculated Osmolality 285 Lactic Acid 9.4 H* 1.9 Calcium 8.2 L Corrected Calcium 9.1 Phosphorus Magnesium Total Bilirubin 0.3 Direct Bilirubin AST 34 ALT 25 Alkaline Phosphatase 86 D Troponin I C-Reactive Prot, Quant Total Protein 4.6 L Albumin 2.9 L Globulin 1.7 L Albumin/Globulin Ratio 1.7 Triglycerides Cholesterol LDL Cholesterol, Calc HDL Cholesterol Cholesterol/HDL Ratio Beta-Hydroxybutyrate/Acetoacetate Cancelled Procalcitonin TSH Free T4 Ur Collection Type Urine Color Urine Clarity Urine pH Ur Specific [place] Urine Protein Urine Glucose (UA) Urine Ketones Urine Blood Urine Nitrite Urine Bilirubin Urine Urobilinogen (Auto) Ur Leukocyte Esterase Urine RBC Urine WBC Ur Squamous Epith Cells Ur Renal Epithelial Cell Urine Bacteria Hyaline Casts Ur Culture Indicated? Ur Random Creatinine Ur Random Sodium Ur Random Potassium Ur Random Chloride 04/11/25 04/11/25 05:18 07:55 WBC 13.0 H D RBC 3.58 L Hgb 11.4 L Hct 34.7 L MCV 97 MCH 31.8 MCHC 32.9 RDW Std Deviation 46.0 Plt Count 206 Neut % (Auto) 78 Lymph % (Auto) 12 Centre % (Auto) 9 Eos % (Auto) 0 Baso % (Auto) 0 Neut # (Auto) 10.1 H Lymph # (Auto) 1.6 Centre # (Auto) 1.2 H Eos # (Auto) 0.0 Baso # (Auto) 0.0 Immature Gran # (Auto) 0.07 H Absolute Nucleated RBC 0.00 Immature Gran % 1 H Nucleated RBC % 0 ESR PT 13.5 H INR 1.3 APTT 25.9 Puncture Site ABG pH ABG pCO2 ABG pO2 ABG HCO3 ABG O2 Saturation ABG Base Excess VBG pH VBG pCO2 VBG pO2 VBG O2 Sat (Juan Alberto) VBG Base Excess FiO2 Sodium 137 Potassium 4.5 D Chloride 106 Carbon Dioxide 22.6 Anion Gap 8 BUN 19 Creatinine 1.2 Estim Creat Clear Calc 46.9 L eGFR 49 L BUN/Creatinine Ratio 16 Glucose [address] Glu mg/dL Hemoglobin A1c Calculated Osmolality 283 Lactic Acid 1.5 1.2 Calcium 8.1 L Corrected Calcium 9.0 Phosphorus 2.8 Magnesium 2.1 Total Bilirubin 0.2 L Direct Bilirubin AST 46 H ALT 29 Alkaline Phosphatase 80 Troponin I C-Reactive Prot, Quant Total Protein 4.6 L Albumin 2.9 L Globulin 1.7 L Albumin/Globulin Ratio 1.7 Triglycerides 80 Cholesterol 93 L LDL Cholesterol, Calc 27 HDL Cholesterol 50 Cholesterol/HDL Ratio 1.9 L Beta-Hydroxybutyrate/Acetoacetate Procalcitonin TSH Free T4 Ur Collection Type Urine Color Urine Clarity Urine pH Ur Specific [place] Urine Protein Urine Glucose (UA) Urine Ketones Urine Blood Urine Nitrite Urine Bilirubin Urine Urobilinogen (Auto) Ur Leukocyte Esterase Urine RBC Urine WBC Ur Squamous Epith Cells Ur Renal Epithelial Cell Urine Bacteria Hyaline Casts Ur Culture Indicated? Ur Random Creatinine Ur Random Sodium Ur Random Potassium Ur Random Chloride ABG Interpretation ABG results: 04/10/25 04/10/25 04/10/25 09:48 11:11 21:37 ABG pH 7.35 7.39 ABG pCO2 33 21 L D ABG pO2 87 146 H D ABG HCO3 18 L 12 L ABG O2 Saturation 97 100 H ABG Base Excess -7 L -11 L VBG pH 7.32 L VBG pCO2 35 L VBG pO2 42 VBG Base Excess -7 L Quality Measures Quality Measures none Advance care planning discussed with:: patient Assessment & Plan Assessment Current Active Medications: Generic Name Dose Route Start Last Admin Trade Name Freq PRN Reason Stop Dose Admin Acetaminophen 1,000 mg 04/10/25 14:28 Acetaminophen 500 Mg Tablet PO 05/10/25 12:00 Q6H PRN Fever >99.9 or pain 1-3 Hydrocodone Bitart/Acetaminophen 1 tab 04/10/25 17:07 04/10/25 17:50 Hydrocodone/Apap 5/325 Tablet PO 04/15/25 17:06 1 tab Q4HR PRN Administration Pain 4-7 Aspirin 81 mg 04/11/25 09:00 04/11/25 08:08 Aspirin Ec 81 Mg Tabec PO 05/11/25 08:59 81 mg QDAY HAYDEN Administration Atorvastatin Calcium 80 mg 04/11/25 21:00 Atorvastatin Calcium 20 Mg Tablet PO 05/11/25 20:59 HS HAYDEN Buspirone HCl 10 mg 04/10/25 21:00 04/11/25 08:08 Buspirone Hcl 5 Mg Tablet PO 05/10/25 20:59 10 mg BID HAYDEN Administration Dextrose 25 ml 04/10/25 14:33 Dextrose 50%-Water Inj 50 Ml Syringe IV 05/10/25 14:32 Q15MIN PRN BG 50-70 responsive npo pt Dextrose 50 ml 04/10/25 14:33 Dextrose 50%-Water Inj 50 Ml Syringe IV 05/10/25 14:32 Q15MIN PRN BG <50 OR BG <70 & pt unresponsive Duloxetine HCl 60 mg 04/11/25 09:00 04/11/25 08:08 Duloxetine Hcl 30 Mg Capsule PO 05/11/25 08:59 60 mg QDAY HAYDEN Administration Glucagon 1 mg 04/10/25 14:33 Glucagon Inj 1 Mg Vial IM Q15MIN PRN BG <70, and no IV access Heparin Sodium (Porcine) 5,000 unit 04/11/25 09:00 04/11/25 08:09 Heparin Sod Inj 5000 Unit/Ml Vial SC 04/25/25 08:59 5,000 unit BID HAYDEN Administration Norepinephrine Bitartrate 16 mg in 250 mls @ 2.977 mls/hr 04/10/25 10:42 04/10/25 13:13 Levophed In Ns 16mg/250ml IV 05/10/25 10:41 0 mcg/kg/min .Q24H PRN 0 mls/hr PER PROTOCOL Titration Protocol 0.05 MCG/KG/MIN Piperacillin/Tazobactam/Dextrose 3.375 gm in 50 mls @ 12.5 mls/hr 04/10/25 22:00 04/11/25 06:23 Zosyn IV 04/17/25 21:59 12.5 mls/hr Q8HR HAYDEN Administration Protocol Vancomycin/Sodium Chloride 200 mls @ 120 mls/hr 04/11/25 22:00 Vancomycin/Ns 1 Gm Ivpb IV 04/18/25 21:59 Q24H HAYDEN Sodium Chloride 1,000 mls @ 75 mls/hr 04/11/25 09:07 Ns IV 05/11/25 09:05 .[id number] HAYDEN Insulin Human Lispro 0 unit 04/10/25 17:00 04/11/25 08:09 Insulin Lispro (Admelog) 1 Unit/0.01 Ml Unit SC 05/10/25 16:59 2 unit AC HAYDEN Administration Protocol Levalbuterol HCl 0.63 mg 04/10/25 14:28 Levalbuterol Rt 0.63 Mg/3 Ml Nebu INH 05/10/25 18:59 Q6HRRT PRN wheezing Midodrine 10 mg 04/10/25 17:04 04/10/25 17:17 Midodrine 5 Mg Tablet PO 05/10/25 20:59 10 mg BID PRN Administration MAP <65 or SBP < 95 Ondansetron HCl 4 mg 04/10/25 12:01 04/10/25 15:34 Ondansetron Inj 2 Mg/Ml Inj 2 Ml IVP 05/10/25 12:00 4 mg Q6H PRN Administration NAUSEA OR VOMITING Protocol Pharmacy Consult 1 each 04/10/25 15:04 Pharmacy Renal Dose Adjustment 1 Ea XX 05/10/25 15:03 PRN PRN CONSULT Pharmacy Consult 1 each 04/10/25 22:40 Vancomycin Pharmacy To Dose 1 Each Each IV 05/10/25 22:39 QDAY PRN PROTOCOL Trazodone HCl 100 mg 04/10/25 21:00 04/10/25 22:13 Trazodone Hcl 50 Mg Tablet PO 05/10/25 20:59 Not Given HS COUNTS INCLUDE 234 BEDS AT THE [facility] Pam Sosa is a 69 y/o female with PMHx of hypertension, hyperlipidemia, previous falls, psych disorder (depression/anxiety) who was admitted for an evaluation of syncope, EDIE on CKD, and high anion gap metabolic acidosis. # Sepsis secondary to pneumonia # Septic shock?now resolved Noted pneumonia on CT, patient was started on Zosyn, overnight was started on vancomycin as unstable vitals and lactic acid continue to worsen. Will de-escalate antibiotics once stable vitals and culture results available. Possible differentials of shock include distributive shock including septic shock versus hypovolemic shock including hemorrhagic shock as patient did drop her hematocrit significantly though also received 5 L IV fluids with only 400 mL urine output, net +4.5 L. Fluid responsive shock with lactic acidosis, but did require Levophed transiently was able to wean off pressor support. ? Continue Zosyn ? Continue vancomycin ? Follow blood culture and urine culture results?no growth at 24 hours ? Continue midodrine 10 mg as needed for MAP below 65 #High anion gap metabolic acidosis with respiratory alkalosis #Lactic acidosis type A, secondary to shock, distributive versus hemorrhagic #EDIE DDx: Prerenal, dehydration No history of stones Likely related to hypovolemia as patient has had poor oral intake and appears dry, despite hypovolemic status, no hemoconcentration noted. Anion gap of 21, bicarb 19, initial lactate was 8.9, currently 6.2, Patient does not appear to have CKD, baseline creatinine seems to be 0.8, creatinine today is 1.3 Suspected CO2 compensation should be 33-37, pCO2 on ABG was 33 as this is an appropriate compensation pattern IVC seems collapsible on bedside ultrasound, likely related to dehydration Plan: ? Reduce maintenance fluids to 75 cc an hour, due to poor urine output and worsening edema ? Renal panel at 8 PM ? Avoid nephrotoxic agents ? Renally dose medicines #Concern for GI bleeding #Acute anemia There is concern for GI bleeding as hemorrhagic shock is high on differential, as well as patient has large retrocardiac gastric hernia, severe lactic acidosis peaking at 9, required significant IV fluids before downtrending, associated tachycardia, obscure source, no bowel movement yet, stool for occult blood has not been collected, will start patient on GI prophylaxis, will discontinue aspirin as acute stroke is ruled out, Acute anemia, less likely dilutional as there is no corresponding decrease in WBC count or platelet counts, isolated heme and hematocrit decreased. The patient had received significant amount of IV fluids. ? Continue Protonix 40 mg daily ? Avoid NSAIDs ? Stool for occult blood ? Trend hemoglobin, will consider GI consult if continued downtrend in hemoglobin. #Syncope secondary to hypotension/orthostatic #Acute encephalopathy secondary to hospital-acquired delirium #Acute stroke ruled out DDx: Orthostasis, aortic stenosis, metabolic disturbances, seizure, POTS Patient does have history of syncope, patient denied seizure. Patient did have a possible murmur heard on auscultation Aortic stenosis can cause syncope at times Plan: ? Will do orthostatic vitals once patient's blood pressure improves ? Discontinue aspirin, as acute stroke ruled out on MRI. And patient has decreasing hemoglobin, will avoid NSAIDs. #Tachycardia Tachycardia present, likely proper response for dehydration and hypotension Hypotension likely related to hypovolemia Was briefly on Levophed, however was taken off and blood pressure improved with fluids Unsure if patient has history of heart failure Plan: ? Telemetry ? Treat as above ? Maintenance fluids ? May consider echo #Hyperglycemia #Insulin-dependent type 2 diabetes mellitus A1c of 7.7 Patient uses Lantus 60 units at home Patient came in with blood sugar of over 400, anion gap present, beta hydroxybutyrate negative Plan: ? Sliding scale insulin ? Hypoglycemic protocol in place ? Blood sugar checks with meals ? Will resume Lantus at night ? Blood sugar check now #Hypertension #Hyperlipidemia Chronic Plan: ? Holding blood pressure medicines as blood pressures soft at this point ? Resumed home Lipitor 20 mg at bedtime ? Cardiac stratification #History of depression #History of anxiety Chronic Plan: ? Resume home BuSpar, Cymbalta, trazodone #Health Maintenance Disposition: Telemetry DVT prophylaxis: Heparin GI prophylaxis: None Indicated at this time Diet: Carb Low CODE STATUS: Full Patient seen and care discussed with my attending physician, Dr. Isaac Eason Pgy 2 Attending Provider Attestation/Addendum Patient seen and examined with resident physician Dr. Eason. Note reviewed, agree with findings and recommendations. Patient currently seen in Telemetry. Patient with a significant lactic acidosis question related to hypovolemia/hypotension//sepsis. Started to respond well to IV fluids. Came off pressors and was admitted to telemetry. Today she seems to be much better. Currently on Zosyn, Vanco. Pending cultures. Blood pressure improved. Blood sugar still elevated. Will start insulin drip. Consistent carb low given. Lactic acid much better, electrolytes will be replaced.
[2025-04-11] MEDS: SODIUM CHLORIDE 0.9% 1000 ML 1,000 ML 75 ML IV ×2 (10:00→21:01)
[2025-04-11] MEDS: PANTOPRAZOLE INJ 40 MG VIAL IVP (10:58)
--- NOTE | 2025-04-11 12:39 | PC.SS ---
SS follow up note; Neurology consult pending, cultures pending. Patient is an ICU downgrade, patient will discharge home when medically cleared.
[2025-04-11] MEDS: HYDROcodone/APAP 5/325 TABLET 1 TAB PO ×3 (13:23→22:02)
[2025-04-11 13:47] LABS: Beta Hydroxybutyrate 0.1 mmol/L (<0.6)
[2025-04-11] MEDS: Milk Of Magnesia Susp 30 ML UDC PO (15:34)
--- NOTE | 2025-04-11 16:16 | ECHO_ITS ---
Transthoracic Echo Report Ht (in): 69 Wt (lb): 160 Exam Location: Echo Lab Status: Inpatient Technology Sales Specialist: Geeta Vidal Indications: Procedure Performed: BP: 105 / 70 HR: 113 Technical Quality: Technically Difficult Due to Breast Augmentation MEASUREMENTS (Male / Female) Normal Values 2D ECHO LVOT Diameter 1.9 cm LA Volume Index 62.3 cm?/m? 16 - 28 cm?/m? Ascending Aorta Diameter 3.2 cm DOPPLER AV Peak Velocity 179.0 cm/s AV Peak Gradient 12.8 mmHg LVOT Peak Velocity 157.0 cm/s LVOT Peak Gradient 9.9 mmHg AV Area Cont Eq pk 2.5 cm? MV Area PHT 4.6 cm? Mitral E Point Velocity 91.2 cm/s Mitral A Point Velocity 60.6 cm/s Mitral E to A Ratio 1.5 LV E' Lateral Velocity 11.3 cm/s Mitral E to LV E' Lateral Ratio 8.1 LV E' Septal Velocity 8.2 cm/s Mitral E to LV E' Septal Ratio 11.2 TR Peak Velocity 297.0 cm/s TR Peak Gradient 35.3 mmHg PV Peak Velocity 107.0 cm/s PV Peak Gradient 4.6 mmHg FINDINGS Left Ventricle Normal left ventricular size and wall thickness. Hyperdynamic systolic function. Normal left ventricular diastolic filling pattern for age. The ejection fraction is visually estimated at 70 %. Right Ventricle The right ventricle is normal in size and systolic function. The estimated right ventricular systolic pressure, 35 mmHg. RAP 5mmHg. Left Atrium The left atrium is not well visualized. Right Atrium The right atrium is not well visualized. Atrial Septum The interatrial septum appears normal with no evidence of a shunt. Aorta The aorta is normal by two-dimensional, color flow and Doppler interrogation. Mitral Valve The mitral valve is normal by two-dimensional, color flow and Doppler interrogation. There is no significant mitral valve regurgitation, stenosis or prolapse. Aortic Valve The aortic valve is trileaflet and normal by two-dimensional, color flow and Doppler interrogation. There is no significant aortic valve regurgitation. Tricuspid Valve The tricuspid valve is normal by two-dimensional, color flow and Doppler interrogation. There is no significant tricuspid valve regurgitation. Pulmonic Valve The pulmonic valve is not well visualized. There is no significant pulmonic valve regurgitation. Vessels The pulmonary artery appears normal. The inferior vena cava pulmonary and hepatic veins appear normal. Pericardium The pericardium is normal by two-dimensional imaging. There is no significant pericardial effusion. CONCLUSIONS Indications: Cardiac murmur-possible Murmur Normal LV size and hyperdynamic Function. Estimated EF >70%. Mild LVH. Diastolic function present but cannot be graded. Moderate aortic valve sclerosis without stenosis. V-max 2.2m/s. Normal RV size and function with mildly elevated RVSP of 40 to 45 mmHg. Mild TR and trace to mild MR. Mild LA dilatation. No Pericardial Effusion. Technically difficult study because of breast implants. Octavio Donovan (Electronically Signed) Final Date: 11 April 2025 20:03
[2025-04-11] MEDS: traZODone HCL 50 MG TABLET 100 MG PO (21:07)
[2025-04-11] MEDS: VANCOMYCIN/NS 1 GM IVPB 200 ML IV (21:07)
[2025-04-11] MEDS: ATORVASTATIN CALCIUM 20 MG TABLET 80 MG PO (21:07)
[2025-04-12] VITALS (8 sets, daily range): BP systolic 116–166; BP diastolic 66–112; PULSE 86–99; RESP 13–97; TEMP 36.2–36.8; O2SAT 95–98; BMI 24.3
[2025-04-12] MEDS: PIPER/TAZO 3.375 GM PREMIX 3.375 GM/50 ML BAG IV (05:41)
[2025-04-12 06:10] LABS: Basophils % (Auto) 0 % (0-2.5); Eosinophils # (Auto) 0.1 Thou/mm3 (0.0-0.5); Eosinophils % (Auto) 2 % (0-10); Hemoglobin 11.1 g/dL (12.0-16.0); Immature Granulocytes % (Auto) 0 % (0-0); Immature Granulocytes Auto 0.02 Thou/mm3 (0.00-0.00); Lymphocytes % (Auto) 18 % (10-50); Mean Corpuscular HGB Conc 32.6 g/dl (31.0-37.0); Mean Corpuscular Volume 98 fL (80-100); Monocytes # (Auto) 0.6 Thou/mm3 (0.0-0.8); Monocytes % (Auto) 11 % (0-12); Neutrophils # (Auto) 3.5 Thou/mm3 (1.8-7.7); Neutrophils % (Auto) 68 % (37-80); Nucleated Red Blood Cell % 0 /100 WBC (0); Platelet Count 132 Thou/mm3 (140-440); RDW Standard Deviation 45.6 fL (36.4-46.3); Red Blood Count 3.47 Miln/mm3 (4.00-5.20); White Blood Count 5.2 Thou/mm3 (3.6-11.0)
[2025-04-12 06:35] LABS: Alanine Aminotransferase 25 U/L (10-49); Albumin, Serum 2.5 gm/dL (3.4-4.8); Albumin/Globulin Ratio 1.6 (1.2-2.2); Alkaline Phosphatase 76 U/L (46-116); Anion Gap 8 (7-16); Aspartate Amino Transferase 39 U/L (0-34); BUN/Creatinine Ratio 18 Ratio (12-20); Bilirubin,Total 0.4 mg/dL (0.3-1.2); Blood Urea Nitrogen 21 mg/dL (9-23); Calcium 7.7 mg/dL (8.3-10.6); Calcium (Corrected) 8.9 mg/dL (8.5-10.1); Carbon Dioxide 22.6 mMol/L (20.0-31.0); Chloride 106 mMol/L (98-107); Creatinine (Component) 1.2 mg/dL (0.6-1.3); Estimated Creatinine Clearance 45.3 mL/min (>60); Globulin 1.6 gm/dL (2.3-3.5); Glucose 340 mg/dL (74-106); Magnesium 2.3 mg/dL (1.6-2.6); Osmolality,Calculated 289 (275-295); Phosphorous 2.4 mg/dL (2.4-5.1); Potassium 4.1 mMol/L (3.4-5.1); Sodium 137 mMol/L (136-145); Total Protein 4.1 gm/dL (5.7-8.2); eGFR 49 See Note
[2025-04-12] MEDS: INSULIN LISPRO (AdmeLOG) 1 UNIT/0.01 ML UNIT SC ×4 (07:19→20:35)
[2025-04-12] MEDS: HYDROcodone/APAP 5/325 TABLET 1 TAB PO ×3 (08:59→20:37)
[2025-04-12] MEDS: DULoxetine HCL 30 MG CAPSULE 60 MG PO (08:59)
[2025-04-12] MEDS: BusPIRone HCL 5 MG TABLET 10 MG PO ×2 (08:59→20:20)
[2025-04-12] MEDS: PANTOPRAZOLE INJ 40 MG VIAL IVP (09:00)
[2025-04-12] MEDS: HEPARIN SOD INJ 5000 UNIT/ML VIAL SC ×2 (09:00→20:19)
--- NOTE | 2025-04-12 09:17 | PD.RESPRO ---
Documentation for date of: 04/12/25 Subjective Subjective Interval history: Sheila is a 69 y/o female with PMHx of hypertension, hyperlipidemia, previous falls, psych disorder (depression/anxiety) comes in for an evaluation after having syncope that occurred when going into the restroom today with prodromal symptoms of diaphoresis and weakness, however with no mechanical trauma to head or other part of body. Patient reports that she has had a history of falls and she says that is partly because of her feeling weak. She says that she notices that she feels weak when she stands up, and that she fell about a couple of weeks ago and bruised up her arm when she was at the [facility]. She said in 2023 she had a fall but did not have syncope and required transfer for surgery as she broke part of her hip in which she has broke part of her hip before as well. 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 She notes that she notices her heart rate increasing when she stands up. She is unsure if her blood pressure changes when she stands up. She does not use home oxygen. She does not use a CPAP. She says she seen Dr. Duarte, reading instructor in [place] before for evaluation of blood flow in the lower extremities (which she said that there was some blockages but nothing significant) but does not see a routine reading instructor at this time. Her primary care doctor is Dr. Gray. She denies any chest pain, shortness of breath, nausea, vomiting, diarrhea, numbness, tingling. She does say that she has not been eating much lately. She also denies any recent travel or sick contacts. She says she is going to get evaluated for dentures soon by the dentist. She does state that she has been losing a lot of her teeth lately. She lives with one of her sons currently. She is currently using CGM freestyle. No other complaints this time 04/11/2025 The patient is evaluated at the bedside, overnight she was delirious, now mental status is at baseline aox3, reported no acute discomfort except right elbow joint pain, Xray had shown acute right radial head fracture, elbow brace ordered. Patient has good mobility of her upper extremity, pain well-controlled. Was seen eating her breakfast with right hand with minimal discomfort. The patient has received 5 L IV fluid, no documented urine output, strict ins and output orders in place, per RN patient had 400 mL urine output during the day so far, patient does seem visibly edematous with facial puffiness. CT abdomen pelvis showed retrocardiac gastric hernia, and pneumonia. Lactic acidosis continue to worsen throughout the night until resolving after repeated fluid boluses, now lactic acid 1.5. On midodrine maintaining vitals. Hemoglobin did drop down from 14 g to 11 g, possible dilutional versus GI bleed, pending stool occult. Sodium 137, potassium 4.5, bicarb 22, BUN 19, creatinine 1.2, anion gap 8, lactic acid 1.5. 04/12/2025, patient is evaluated bedside, mental status at baseline, complaining of mild discomfort right elbow, brace was ordered yesterday, but patient unable to continuously wear due to discomfort, advised patient to continue wearing brace for proper healing. Urine output overnight 1100 mL, complaining of lower abdominal discomfort, reported they feel like bladder spasms , likely secondary to UTI, negative blood cultures to date but urine culture grew E. coli pansensitive. De-escalated antibiotics from vancomycin and Zosyn to ceftriaxone. Also poor glycemic control, blood glucose on morning labs 340, will add insulin Lantus 12 units/day in addition to sliding scale. Sodium 137, potassium 4.1, BUN 21, creatinine 1.2 Exam Vital Signs Temp Pulse Resp BP Pulse Ox O2 Del Method O2 Flow Rate 97.5 F 88 17 149/83 H 97 Nasal Cannula 1 04/12/25 04:00 04/12/25 07:54 04/12/25 07:54 04/12/25 04:00 04/12/25 07:54 04/12/25 04:00 04/12/25 07:54 Narrative Exam General: AAOx3, NAD, weak appearing female, HEENT: Dry mucous membranes, conjunctiva clear, EOMI, PERRLA, poor dentition Cardiovascular: S1, S2, radial pulses +2 bilat, tachycardic, ejection systolic murmur heard in right upper sternal border that radiates to the carotid, tattoo on left side of chest Pulmonary: CTAB bilat no cough, no wheezing, attached to present on right upper back GI: No tenderness to light or deep palpitation, no guarding, rigidity, rebound tenderness or distension, abdominal obesity Extremities: Trace pedal edema in lower extremities bilaterally, dorsalis pedis pulses +2 bilaterally, mild to moderate tenderness right elbow joint. Neuro: AAOx3, no focal motor or sensory deficits in the UE or LE bilat Psych: Good judgement, thought and behavior Objective Labs 04/13/25 05:29 04/13/25 05:29 Labs: Laboratory Results - last 24 hr 04/11/25 04/12/25 13:30 05:14 WBC 5.2 D RBC 3.47 L Hgb 11.1 L Hct 34.0 L MCV 98 MCH 32.0 MCHC 32.6 RDW Std Deviation 45.6 Plt Count 132 L D Neut % (Auto) 68 Lymph % (Auto) 18 [place] % (Auto) 11 Eos % (Auto) 2 Baso % (Auto) 0 Neut # (Auto) 3.5 Lymph # (Auto) 1.0 [place] # (Auto) 0.6 Eos # (Auto) 0.1 Baso # (Auto) 0.0 Immature Gran # (Auto) 0.02 H Absolute Nucleated RBC 0.00 Immature Gran % 0 Nucleated RBC % 0 Sodium 137 Potassium 4.1 Chloride 106 Carbon Dioxide 22.6 Anion Gap 8 BUN 21 Creatinine 1.2 Estim Creat Clear Calc 45.3 L eGFR 49 L BUN/Creatinine Ratio 18 Glucose 340 H D Calculated Osmolality 289 Lactic Acid 2.0 Calcium 7.7 L Corrected Calcium 8.9 Phosphorus 2.4 Magnesium 2.3 Total Bilirubin 0.4 AST 39 H ALT 25 Alkaline Phosphatase 76 Total Protein 4.1 L Albumin 2.5 L Globulin 1.6 L Albumin/Globulin Ratio 1.6 Beta-Hydroxybutyrate/Acetoacetate 0.1 ABG Interpretation ABG results: 04/10/25 04/10/25 04/10/25 09:48 11:11 21:37 ABG pH 7.35 7.39 ABG pCO2 33 21 L D ABG pO2 87 146 H D ABG HCO3 18 L 12 L ABG O2 Saturation 97 100 H ABG Base Excess -7 L -11 L VBG pH 7.32 L VBG pCO2 35 L VBG pO2 42 VBG Base Excess -7 L Quality Measures Quality Measures none Advance care planning discussed with:: patient Assessment & Plan Assessment Current Active Medications: Generic Name Dose Route Start Last Admin Trade Name Freq PRN Reason Stop Dose Admin Acetaminophen 1,000 mg 04/10/25 14:28 Acetaminophen 500 Mg Tablet PO 05/10/25 12:00 Q6H PRN Fever >99.9 or pain 1-3 Hydrocodone Bitart/Acetaminophen 1 tab 04/10/25 17:07 04/12/25 08:59 Hydrocodone/Apap 5/325 Tablet PO 04/15/25 17:06 1 tab Q4HR PRN Administration Pain 4-7 Atorvastatin Calcium 80 mg 04/11/25 21:00 04/11/25 21:07 Atorvastatin Calcium 20 Mg Tablet PO 05/11/25 20:59 80 mg HS HAYDEN Administration Buspirone HCl 10 mg 04/10/25 21:00 04/12/25 08:59 Buspirone Hcl 5 Mg Tablet PO 05/10/25 20:59 10 mg BID HAYDEN Administration Dextrose 25 ml 04/10/25 14:33 Dextrose 50%-Water Inj 50 Ml Syringe IV 05/10/25 14:32 Q15MIN PRN BG 50-70 responsive npo pt Dextrose 50 ml 04/10/25 14:33 Dextrose 50%-Water Inj 50 Ml Syringe IV 05/10/25 14:32 Q15MIN PRN BG <50 OR BG <70 & pt unresponsive Duloxetine HCl 60 mg 04/11/25 09:00 04/12/25 08:59 Duloxetine Hcl 30 Mg Capsule PO 05/11/25 08:59 60 mg QDAY HAYDEN Administration Glucagon 1 mg 04/10/25 14:33 Glucagon Inj 1 Mg Vial IM Q15MIN PRN BG <70, and no IV access Heparin Sodium (Porcine) 5,000 unit 04/11/25 09:00 04/12/25 09:00 Heparin Sod Inj 5000 Unit/Ml Vial SC 04/25/25 08:59 5,000 unit BID HAYDEN Administration Norepinephrine Bitartrate 16 mg in 250 mls @ 2.977 mls/hr 04/10/25 10:42 04/10/25 13:13 Levophed In Ns 16mg/250ml IV 05/10/25 10:41 0 mcg/kg/min .Q24H PRN 0 mls/hr PER PROTOCOL Titration Protocol 0.05 MCG/KG/MIN Piperacillin/Tazobactam/Dextrose 3.375 gm in 50 mls @ 12.5 mls/hr 04/10/25 22:00 04/12/25 05:41 Zosyn IV 04/17/25 21:59 12.5 mls/hr Q8HR HAYDEN Administration Protocol Vancomycin/Sodium Chloride 200 mls @ 120 mls/hr 04/11/25 22:00 04/11/25 21:07 Vancomycin/Ns 1 Gm Ivpb IV 04/18/25 21:59 120 mls/hr Q24H HAYDEN Administration Sodium Chloride 1,000 mls @ 75 mls/hr 04/11/25 09:07 04/11/25 21:01 Ns IV 05/11/25 09:05 75 mls/hr .[id number] HAYDEN Administration Insulin Glargine 12 unit 04/12/25 09:15 Insulin Glargine (Lantus) 5 Unit/0.05 Ml (Per 5 Units) SC 05/12/25 09:14 QDAY HAYDEN Insulin Human Lispro 0 unit 04/12/25 11:30 Insulin Lispro (Admelog) 1 Unit/0.01 Ml Unit SC 05/12/25 11:29 ACHS HAYDEN Protocol Levalbuterol HCl 0.63 mg 04/10/25 14:28 Levalbuterol Rt 0.63 Mg/3 Ml Nebu INH 05/10/25 18:59 Q6HRRT PRN wheezing Midodrine 10 mg 04/10/25 17:04 04/10/25 17:17 Midodrine 5 Mg Tablet PO 05/10/25 20:59 10 mg BID PRN Administration MAP <65 or SBP < 95 Ondansetron HCl 4 mg 04/10/25 12:01 04/10/25 15:34 Ondansetron Inj 2 Mg/Ml Inj 2 Ml IVP 05/10/25 12:00 4 mg Q6H PRN Administration NAUSEA OR VOMITING Protocol Pantoprazole Sodium 40 mg 04/11/25 10:30 04/12/25 09:00 Pantoprazole Inj 40 Mg Vial IVP 05/11/25 10:29 40 mg QDAY HAYDEN Administration Pharmacy Consult 1 each 04/10/25 15:04 Pharmacy Renal Dose Adjustment 1 Ea XX 05/10/25 15:03 PRN PRN CONSULT Pharmacy Consult 1 each 04/10/25 22:40 Vancomycin Pharmacy To Dose 1 Each Each IV 05/10/25 22:39 QDAY PRN PROTOCOL Sennosides 2 tab 04/11/25 15:15 Senna Tablet PO 05/11/25 15:14 QDAY PRN CONSTIPATION Protocol Trazodone HCl 100 mg 04/10/25 21:00 04/11/25 21:07 Trazodone Hcl 50 Mg Tablet PO 05/10/25 20:59 100 mg HS HAYDEN Administration Plan Sheila is a 69 y/o female with PMHx of hypertension, hyperlipidemia, previous falls, psych disorder (depression/anxiety) who was admitted for an evaluation of syncope, EDIE on CKD, and high anion gap metabolic acidosis. # Sepsis secondary to pneumonia and UTI # Septic shock?now resolved Noted pneumonia on CT, patient was started on Zosyn, overnight was started on vancomycin as unstable vitals and lactic acid continue to worsen. Will de-escalate antibiotics once stable vitals and culture results available. Possible differentials of shock include distributive shock including septic shock versus hypovolemic shock including hemorrhagic shock as patient did drop her hematocrit significantly though also received 5 L IV fluids with only 400 mL urine output, net +4.5 L. Fluid responsive shock with lactic acidosis, but did require Levophed transiently was able to wean off pressor support. ? Discontinued Zosyn and vancomycin, switching to ceftriaxone as urine culture grew E. coli pansensitive. Blood culture negative to date. ? Continue midodrine 10 mg as needed for MAP below 65 #High anion gap metabolic acidosis with respiratory alkalosis #Lactic acidosis type A, secondary to shock, distributive versus hemorrhagic #EDIE DDx: Prerenal, dehydration No history of stones Likely related to hypovolemia as patient has had poor oral intake and appears dry, despite hypovolemic status, no hemoconcentration noted. Anion gap of 21, bicarb 19, initial lactate was 8.9, currently 6.2, Patient does not appear to have CKD, baseline creatinine seems to be 0.8, creatinine today is 1.3 Suspected CO2 compensation should be 33-37, pCO2 on ABG was 33 as this is an appropriate compensation pattern IVC seems collapsible on bedside ultrasound, likely related to dehydration Plan: ? Reduce maintenance fluids to 75 cc an hour, due to poor urine output and worsening edema, will reassess need for IV fluids. ? Avoid nephrotoxic agents ? Renally dose medicines #Concern for GI bleeding #Acute anemia There is concern for GI bleeding as hemorrhagic shock is high on differential, as well as patient has large retrocardiac gastric hernia, severe lactic acidosis peaking at 9, required significant IV fluids before downtrending, associated tachycardia, obscure source, no bowel movement yet, stool for occult blood has not been collected, will start patient on GI prophylaxis, will discontinue aspirin as acute stroke is ruled out, Acute anemia, less likely dilutional as there is no corresponding decrease in WBC count or platelet counts, isolated heme and hematocrit decreased. The patient had received significant amount of IV fluids. ? Continue Protonix 40 mg daily ? Avoid NSAIDs ? Stool for occult blood ? Trend hemoglobin, will consider GI consult if continued downtrend in hemoglobin. #Syncope secondary to hypotension/orthostatic #Acute encephalopathy secondary to hospital-acquired delirium #Acute stroke ruled out DDx: Orthostasis, aortic stenosis, metabolic disturbances, seizure, POTS Patient does have history of syncope, patient denied seizure. Patient did have a possible murmur heard on auscultation Aortic stenosis can cause syncope at times Plan: ? Will do orthostatic vitals once patient's blood pressure improves ? Discontinue aspirin, as acute stroke ruled out on MRI. And patient has decreasing hemoglobin, will avoid NSAIDs. #Tachycardia Tachycardia present, likely proper response for dehydration and hypotension Hypotension likely related to hypovolemia Was briefly on Levophed, however was taken off and blood pressure improved with fluids Unsure if patient has history of heart failure Plan: ? Telemetry ? Treat as above ? Maintenance fluids ? Echo ordered #Hyperglycemia #Insulin-dependent type 2 diabetes mellitus A1c of 7.7 Patient uses Lantus 60 units at home Patient came in with blood sugar of over 400, anion gap present, beta hydroxybutyrate negative Plan: ? Sliding scale insulin ? Hypoglycemic protocol in place ? Blood sugar checks with meals ? Will resume Lantus at night ? Blood sugar check now #Hypertension #Hyperlipidemia Chronic Plan: ? Holding blood pressure medicines as blood pressures soft at this point ? Resumed home Lipitor 20 mg at bedtime ? Cardiac stratification #History of depression #History of anxiety Chronic Plan: ? Resume home BuSpar, Cymbalta, trazodone #Health Maintenance Disposition: Telemetry DVT prophylaxis: Heparin GI prophylaxis: None Indicated at this time Diet: Carb Low CODE STATUS: Full Patient seen and care discussed with my attending physician, Dr. Isaac Eason Pgy 2 Attending Provider Attestation/Addendum Patient seen and examined with resident physician Dr. Eason. Note reviewed, agree with findings and recommendations. Patient currently seen in Telemetry. Patient with a significant lactic acidosis question related to hypovolemia/hypotension//sepsis. Started to respond well to IV fluids. Came off pressors and was admitted to telemetry. 03/2025 Today she seems to be much better. Currently on Zosyn, Vanco. Pending cultures. Blood pressure improved. In fact on the higher side. Blood sugar still elevated. Will start insulin. Consistent carb low given. Lactic acid much better, electrolytes will be replaced. Urine cultures came back E. coli-will switch her antibiotics to ceftriaxone. If clinically stable will plan for discharge tomorrow on p.o. Augmentin.
[2025-04-12] MEDS: cefTRIAXone/D5w 1gm IV premix 1 GM/50 ML BAG IV (09:51)
[2025-04-12] MEDS: INSULIN GLARGINE (Lantus) 5 UNIT/0.05 ML (PER 5 UNITS) 12 UNIT SC (09:51)
[2025-04-12] MEDS: SENNA TABLET 2 TAB PO (10:50)
[2025-04-12] MEDS: SODIUM CHLORIDE 0.9% 1000 ML 1,000 ML 75 ML IV (10:51)
[2025-04-12] MEDS: ATORVASTATIN CALCIUM 20 MG TABLET 80 MG PO (20:20)
[2025-04-12] MEDS: PHENAZOPYRIDINE HCL 100 MG TABLET PO (20:20)
[2025-04-12] MEDS: traZODone HCL 50 MG TABLET 100 MG PO (20:20)
[2025-04-13] VITALS (12 sets, daily range): BP systolic 134–167; BP diastolic 84–104; PULSE 75–106; RESP 15–96; TEMP 36.1–36.6; O2SAT 93–97
[2025-04-13] MEDS: SODIUM CHLORIDE 0.9% 1000 ML 1,000 ML 75 ML IV (01:12)
[2025-04-13 06:07] LABS: Basophils % (Auto) 0 % (0-2.5); Eosinophils # (Auto) 0.1 Thou/mm3 (0.0-0.5); Eosinophils % (Auto) 2 % (0-10); Hematocrit 34.8 % (36.0-46.0); Immature Granulocytes % (Auto) 0 % (0-0); Immature Granulocytes Auto 0.01 Thou/mm3 (0.00-0.00); Lymphocytes # (Auto) 0.8 Thou/mm3 (1.0-4.8); Lymphocytes % (Auto) 23 % (10-50); Mean Corpuscular HGB Conc 34.5 g/dl (31.0-37.0); Mean Corpuscular Hemoglobin 31.5 pg (25.0-35.0); Mean Corpuscular Volume 91 fL (80-100); Monocytes # (Auto) 0.4 Thou/mm3 (0.0-0.8); Monocytes % (Auto) 11 % (0-12); Neutrophils # (Auto) 2.1 Thou/mm3 (1.8-7.7); Neutrophils % (Auto) 64 % (37-80); Nucleated Red Blood Cell % 0 /100 WBC (0); Platelet Count 108 Thou/mm3 (140-440); Red Blood Count 3.81 Miln/mm3 (4.00-5.20); White Blood Count 3.3 Thou/mm3 (3.6-11.0)
[2025-04-13 06:27] LABS: Alanine Aminotransferase 29 U/L (10-49); Albumin, Serum 2.8 gm/dL (3.4-4.8); Albumin/Globulin Ratio 1.6 (1.2-2.2); Alkaline Phosphatase 94 U/L (46-116); Anion Gap 7 (7-16); Aspartate Amino Transferase 32 U/L (0-34); BUN/Creatinine Ratio 23 Ratio (12-20); Bilirubin,Total 0.5 mg/dL (0.3-1.2); Blood Urea Nitrogen 14 mg/dL (9-23); Calcium 7.8 mg/dL (8.3-10.6); Calcium (Corrected) 8.8 mg/dL (8.5-10.1); Carbon Dioxide 33.4 mMol/L (20.0-31.0); Chloride 101 mMol/L (98-107); Creatinine (Component) 0.6 mg/dL (0.6-1.3); Estimated Creatinine Clearance 90.5 mL/min (>60); Globulin 1.8 gm/dL (2.3-3.5); Glucose 244 mg/dL (74-106); Magnesium 1.8 mg/dL (1.6-2.6); Osmolality,Calculated 289 (275-295); Phosphorous 1.9 mg/dL (2.4-5.1); Potassium 3.5 mMol/L (3.4-5.1); Sodium 141 mMol/L (136-145); Total Protein 4.6 gm/dL (5.7-8.2); eGFR > 60 See Note
--- NOTE | 2025-04-13 07:33 | PD.NEPHDC ---
Planned Discharge Date 04/13/25 DS: Providers Provider Date of admission: 04/10/25 14:28 Primary care physician: David Carpenter MD Admitting Provider: David Carpenter MD Attending Provider on Admission: David Carpenter MD Consults: 04/10/25 11:45 Consult to Nephrology Stat Comment: CKD Consulting Provider: David Carpenter 04/10/25 14:43 Referral Registered Dietitian Routine Comment: Attending Provider on DC: David Carpenter MD Discharging Provider: David Carpenter MD Hospital Course Time Spent with Patient Time attestation: Total time spent providing and/or coordinating discharge services: Exam Vital Signs Temp Pulse Resp BP Pulse Ox O2 Del Method O2 Flow Rate 36.5 C 92 20 161/99 H 97 Nasal Cannula 1 04/13/25 04:00 04/13/25 04:00 04/13/25 04:00 04/13/25 04:00 04/13/25 04:00 04/13/25 04:00 04/13/25 04:00 Discharge Plan Plan Patient Disposition: Home w/HOME HEALTH Prescriptions/Referrals Prescriptions/Med Rec: New amoxicillin-pot clavulanate [Augmentin] 500-125 mg tablet 1 tab PO BID Qty: 14 0RF Continued insulin glargine [Lantus U-100 Insulin] 1 UNIT/0.01 ML unit 60 unit Sub-Q HS Qty: 0 bupropion HCl [Wellbutrin XL] 300 mg Tablet Extended Release 24 Hr 300 mg PO QAM simvastatin 40 mg Tablet 40 mg PO HS nadolol 40 mg Tablet 40 mg PO QDAY telmisartan 20 mg Tablet 20 mg PO QDAY duloxetine 30 mg Capsule,Delayed Release(Dr/Ec) 60 mg PO QDAY Referrals: David Carpenter MD [Primary Care Provider] - Patient/Caregiver Discharge Instructions Discharge Activity: activity as tolerated Print Language: Greek Activity Restrictions/Additional Instructions: f/u withmadeline carpenter in 1-2 weeks Stand Alone Forms: Breana Award Info., Patient Portal Info Letter
[2025-04-13] MEDS: BusPIRone HCL 5 MG TABLET 10 MG PO ×2 (08:11→20:28)
[2025-04-13] MEDS: DULoxetine HCL 30 MG CAPSULE 60 MG PO (08:11)
[2025-04-13] MEDS: PHENAZOPYRIDINE HCL 100 MG TABLET PO ×2 (08:11→17:10)
[2025-04-13] MEDS: LOSARTAN POTASSIUM 25 MG TABLET PO (08:11)
[2025-04-13] MEDS: PANTOPRAZOLE 40 MG TABLET PO (08:12)
[2025-04-13] MEDS: INSULIN GLARGINE (Lantus) 5 UNIT/0.05 ML (PER 5 UNITS) 20 UNIT SC (08:12)
[2025-04-13] MEDS: INSULIN LISPRO (AdmeLOG) 1 UNIT/0.01 ML UNIT SC ×4 (08:13→20:37)
[2025-04-13] MEDS: HEPARIN SOD INJ 5000 UNIT/ML VIAL SC ×2 (08:14→20:29)
[2025-04-13] MEDS: cefTRIAXone/D5w 1gm IV premix 1 GM/50 ML BAG IV (08:14)
[2025-04-13] MEDS: HYDROcodone/APAP 5/325 TABLET 1 TAB PO ×3 (08:24→18:44)
[2025-04-13] MEDS: POTASSIUM PHOS 22.5 MMOL in SODIUM CHLORIDE 0.9% 500 ML 500 ML 82.778 MMOL IV (10:24)
--- NOTE | 2025-04-13 12:07 | ESPR_ITS ---
Documentation for date of: 04/13/25 Subjective Subjective Interval history: Sheila is a 69 y/o female with PMHx of hypertension, hyperlipidemia, previous falls, psych disorder (depression/anxiety) comes in for an evaluation after having syncope that occurred when going into the restroom today with prodromal symptoms of diaphoresis and weakness, however with no mechanical trauma to head or other part of body. Patient reports that she has had a history of falls and she says that is partly because of her feeling weak. She says that she notices that she feels weak when she stands up, and that she fell about a couple of weeks ago and [facility]. She said in 2023 she had a fall but did not have syncope and required transfer for surgery as she broke part of her hip in which she has broke part of her hip before as well. 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 She notes that she notices her heart rate increasing when she stands up. She is unsure if her blood pressure changes when she stands up. She does not use home oxygen. She does not use a CPAP. She says she seen Dr. Duarte, continuous absorption process operator in [place] [employer] before for evaluation of blood flow in the lower extremities (which she said that there was some blockages but nothing significant) but does not see a routine continuous absorption process operator at this time. Her primary care doctor is Dr. Gray. She denies any chest pain, shortness of breath, nausea, vomiting, diarrhea, numbness, tingling. She does say that she has not been eating much lately. She also denies any recent travel or sick contacts. She says she is going to get evaluated for dentures soon by the dentist. She does state that she has been losing a lot of her teeth lately. She lives with one of her sons currently. She is currently using CGM freestyle. No other complaints this time 04/11/2025 The patient is evaluated at the bedside, overnight she was delirious, now mental status is at baseline aox3, reported no acute discomfort except right elbow joint pain, Xray had shown acute right radial head fracture, elbow brace ordered. Patient has good mobility of her upper extremity, pain well- controlled. Was seen eating her breakfast with right hand with minimal discomfort. The patient has received 5 L IV fluid, no documented urine output, strict ins and output orders in place, per RN patient had 400 mL urine output during the day so far, patient does seem visibly edematous with facial puffiness. CT abdomen pelvis showed retrocardiac gastric hernia, and pneumonia. Lactic acidosis continue to worsen throughout the night until resolving after repeated fluid boluses, now lactic acid 1.5. On midodrine maintaining vitals. Hemoglobin did drop down from 14 g to 11 g, possible dilutional versus GI bleed, pending stool occult. Sodium 137, potassium 4.5, bicarb 22, BUN 19, creatinine 1.2, anion gap 8, lactic acid 1.5. 04/12/2025, patient is evaluated bedside, mental status at baseline, complaining of mild discomfort right elbow, brace was ordered yesterday, but patient unable to continuously wear due to discomfort, advised patient to continue wearing brace for proper healing. Urine output overnight 1100 mL, complaining of lower abdominal discomfort, reported they feel like bladder spasms , likely secondary to UTI, negative blood cultures to date but urine culture grew E. coli pansensitive. De-escalated antibiotics from vancomycin and Zosyn to ceftriaxone. Also poor glycemic control, blood glucose on morning labs 340, will add insulin Lantus 12 units/day in addition to sliding scale. Sodium 137, potassium 4.1, BUN 21, creatinine 1.2 04/13/2025 patient resting comfortably. Still feeling weak. Will plan for discharge tomorrow. Plan of care discussed with bedside. Review of Systems Review of Systems Narrative Review of Systems: CONSTITUTIONAL: Patient denies any fever, chills. HEENT: Denies any visual disturbances or hearing problems. CARDIOVASCULAR: Patient denies any chest pain, shortness of breath, swelling in the lower extremities. PULMONARY: Patient denies any shortness of breath, cough. GASTROINTESTINAL: Patient denies any abdominal pain, constipation, nausea, vomiting, diarrhea. GENITOURINARY: Patient denies any urinary symptoms of burning or frequency or hematuria, denies any form in the urine. SKIN: Denies any rash. MUSCULOSKELETAL: Denies any muscular skeletal problems of joint pains. Gait imbalance NEUROLOGICAL: Denies any neurological problems of strokes, seizures or confusion. Denies any memory problems. PSYCHIATRIC: Denies any depression or anxiety. LYMPHATICS : No lymphadenopathy Exam Vital Signs Temp Pulse Resp BP Pulse Ox O2 Del Method O2 Flow Rate 36.3 C 98 17 152/98 H 95 Room Air 1 04/13/25 16:00 04/13/25 16:00 04/13/25 16:00 04/13/25 16:00 04/13/25 16:00 04/13/25 16:00 04/13/25 13:25 Narrative Exam GENERAL APPEARANCE: Patient seems to be comfortable, adequately hydrated and nourished. HEENT: EOMI, PERRLA NECK: Neck supple, no JVD or bruit CARDIOVASCULAR: Heart regular, no murmurs LUNGS/CHEST: Chest clear to auscultation. No rales, rhonchi, wheezing ABDOMEN: Soft, nontender, nondistended. No masses. Normal bowel sounds. EXTREMITIES: No edema, clubbing or cyanosis. SKIN: Skin exam normal without any rashes MUSCULOSKELETAL: Musculoskeletal exam normal PSYCHIATRIC: Normal mood, affect LYMPHATICS: No lymphadenopathy noted NEUROLOGICAL : No neurological deficits Objective Labs 04/14/25 04:37 04/14/25 04:37 Labs: Laboratory Results - last 24 hr 04/13/25 04/13/25 05:29 13:50 WBC 3.3 L RBC 3.81 L Hgb 12.0 Hct 34.8 L MCV 91 MCH 31.5 MCHC 34.5 RDW Std Deviation 41.0 Plt Count 108 L Neut % (Auto) 64 Lymph % (Auto) 23 [place] % (Auto) 11 Eos % (Auto) 2 Baso % (Auto) 0 Neut # (Auto) 2.1 Lymph # (Auto) 0.8 L [place] # (Auto) 0.4 Eos # (Auto) 0.1 Baso # (Auto) 0.0 Immature Gran # (Auto) 0.01 H Absolute Nucleated RBC 0.00 Immature Gran % 0 Nucleated RBC % 0 Sodium 141 Potassium 3.5 D Chloride 101 Carbon Dioxide 33.4 H Anion Gap 7 BUN 14 Creatinine 0.6 D Estim Creat Clear Calc 90.5 eGFR > 60 BUN/Creatinine Ratio 23 H Glucose 244 H D Calculated Osmolality 289 Calcium 7.8 L Corrected Calcium 8.8 Phosphorus 1.9 L Magnesium 1.8 Total Bilirubin 0.5 AST 32 ALT 29 Alkaline Phosphatase 94 D Total Protein 4.6 L Albumin 2.8 L Globulin 1.8 L Albumin/Globulin Ratio 1.6 Stool Occult Blood Positive A ABG Interpretation ABG results: 04/10/25 04/10/25 04/10/25 09:48 11:11 21:37 ABG pH 7.35 7.39 ABG pCO2 33 21 L D ABG pO2 87 146 H D ABG HCO3 18 L 12 L ABG O2 Saturation 97 100 H ABG Base Excess -7 L -11 L VBG pH 7.32 L VBG pCO2 35 L VBG pO2 42 VBG Base Excess -7 L Assessment & Plan Additional Assessment & Plan Additional Plan: Problems: Sepsis secondary to pneumonia and UTI Septic shock Type 2 diabetes mellitus Acute kidney injury Retrocardiac gastric atony Acute anemia Depression anxiety Hypertension Continue with antibiotics and increase p.o. intake. Will plan for discharge tomorrow with home health care. Creatinine markedly improved. Sepsis resolved
[2025-04-13 14:35] LABS: OBS QC OK? Yes
--- NOTE | 2025-04-13 15:05 | PC.NURSE ---
Report received from HUNTER Goode.
[2025-04-13 17:46] LABS: Occult Blood, Stool Positive (Negative)
[2025-04-13 17:47] LABS: OBS Performed By PANIP
[2025-04-13] MEDS: ATORVASTATIN CALCIUM 20 MG TABLET 80 MG PO (20:28)
[2025-04-13] MEDS: traZODone HCL 50 MG TABLET 100 MG PO (20:29)
--- NOTE | 2025-04-13 22:55 | PC.NURSE ---
Nurse rounded on patient. Patient is currently asleep in bed. Nurse assessed patients RR. Patient is showing no signs of distress.
[2025-04-14] VITALS (7 sets, daily range): BP systolic 151–178; BP diastolic 89–100; PULSE 60–105; RESP 13–93; TEMP 36.1–36.6; O2SAT 93–95
[2025-04-14] MEDS: METOPROLOL SUCCINATE XL 25 MG TABCR 50 MG PO (05:56)
[2025-04-14 06:01] LABS: Basophils % (Auto) 1 % (0-2.5); Eosinophils # (Auto) 0.1 Thou/mm3 (0.0-0.5); Eosinophils % (Auto) 3 % (0-10); Hematocrit 44.5 % (36.0-46.0); Immature Granulocytes % (Auto) 1 % (0-0); Immature Granulocytes Auto 0.02 Thou/mm3 (0.00-0.00); Lymphocytes # (Auto) 1.2 Thou/mm3 (1.0-4.8); Lymphocytes % (Auto) 30 % (10-50); Mean Corpuscular HGB Conc 33.7 g/dl (31.0-37.0); Mean Corpuscular Hemoglobin 31.6 pg (25.0-35.0); Mean Corpuscular Volume 94 fL (80-100); Monocytes # (Auto) 0.4 Thou/mm3 (0.0-0.8); Monocytes % (Auto) 11 % (0-12); Neutrophils # (Auto) 2.2 Thou/mm3 (1.8-7.7); Neutrophils % (Auto) 56 % (37-80); Nucleated Red Blood Cell % 0 /100 WBC (0); Platelet Count 132 Thou/mm3 (140-440); RDW Standard Deviation 42.9 fL (36.4-46.3); Red Blood Count 4.75 Miln/mm3 (4.00-5.20); White Blood Count 3.9 Thou/mm3 (3.6-11.0)
[2025-04-14 06:34] LABS: Alanine Aminotransferase 33 U/L (10-49); Albumin, Serum 3.5 gm/dL (3.4-4.8); Albumin/Globulin Ratio 1.5 (1.2-2.2); Alkaline Phosphatase 135 U/L (46-116); Anion Gap 9 (7-16); Aspartate Amino Transferase 26 U/L (0-34); BUN/Creatinine Ratio 16 Ratio (12-20); Bilirubin,Total 0.7 mg/dL (0.3-1.2); Blood Urea Nitrogen 11 mg/dL (9-23); Calcium 8.7 mg/dL (8.3-10.6); Calcium (Corrected) 9.1 mg/dL (8.5-10.1); Carbon Dioxide 30.7 mMol/L (20.0-31.0); Chloride 97 mMol/L (98-107); Creatinine (Component) 0.7 mg/dL (0.6-1.3); Estimated Creatinine Clearance 77.6 mL/min (>60); Globulin 2.3 gm/dL (2.3-3.5); Glucose 316 mg/dL (74-106); Osmolality,Calculated 285 (275-295); Potassium 4.1 mMol/L (3.4-5.1); Sodium 137 mMol/L (136-145); Total Protein 5.8 gm/dL (5.7-8.2); eGFR > 60 See Note
[2025-04-14] MEDS: DULoxetine HCL 30 MG CAPSULE 60 MG PO (08:14)
[2025-04-14] MEDS: LOSARTAN POTASSIUM 25 MG TABLET 50 MG PO (08:14)
[2025-04-14] MEDS: PHENAZOPYRIDINE HCL 100 MG TABLET PO (08:14)
[2025-04-14] MEDS: PANTOPRAZOLE 40 MG TABLET PO (08:14)
[2025-04-14] MEDS: BusPIRone HCL 5 MG TABLET 10 MG PO (08:14)
[2025-04-14] MEDS: INSULIN LISPRO (AdmeLOG) 1 UNIT/0.01 ML UNIT SC ×2 (08:15→11:37)
[2025-04-14] MEDS: INSULIN GLARGINE (Lantus) 5 UNIT/0.05 ML (PER 5 UNITS) 26 UNIT SC (08:15)
[2025-04-14] MEDS: HEPARIN SOD INJ 5000 UNIT/ML VIAL SC (08:15)
[2025-04-14] MEDS: cefTRIAXone/D5w 1gm IV premix 1 GM/50 ML BAG IV (08:16)
[2025-04-14] MEDS: HYDROcodone/APAP 5/325 TABLET 1 TAB PO (08:20)
--- NOTE | 2025-04-14 08:46 | ESDS_ITS ---
Planned Discharge Date 04/14/25 DS: Providers Provider Date of admission: 04/10/25 14:28 Primary care physician: David Carpenter MD Admitting Provider: David Carpenter MD Attending Provider on Admission: David Carpenter MD Consults: 04/10/25 11:45 Consult to Nephrology Stat Comment: CKD Consulting Provider: David Carpentre 04/10/25 14:43 Referral Registered Dietitian Routine Comment: Attending Provider on DC: Lisa Eason MD Discharging Provider: Lisa Eason MD DS: Diagnosis Problem List Completed Was Problem List Reviewed/Reconciled?: Yes Hospital Course Hospital Course Hospital course: Sonja is a 69-year-old female with a past medical history of hypertension, diabetes mellitus, hyperlipidemia, depression anxiety, falls, retrocardiac gastr ic hernia, CKD, who was admitted from the emergency room to the medical floor for management of sepsis and septic shock secondary to pneumonia and UTI, syncope, acute kidney injury on CKD, and lactic acidosis. The patient was found to be hypotensive in the emergency room, requiring IV fluid boluses as well as Levophed, but was able to be weaned off of Levophed shortly, fluid responsive shock, requiring more than 4 L IV fluid boluses. Started on maintenance fluids. Patient was started on IV antibiotics Zosyn and vancomycin. Blood cultures negative to date, urine cultures grew E. coli which are pansensitive, antibiotics were de-escalated to ceftriaxone. Problems: Sepsis secondary to pneumonia and UTI Septic shock Type 2 diabetes mellitus Acute kidney injury Retrocardiac gastric atony Acute anemia Depression anxiety Hypertension Discharge instructions: Please stop taking Nodalol and Telmisartan, you have been prescribed new medications for blood pressure control, Losartan 50mg once daily and Metoprolol T. 50mg twice daily. Please continue 7 more days of antibiotic therapy, amoxicillin-pot clavulanate (Augmentin) for treatment of UTI. Please continue insulin 60 units per day as prescribed. Follow up with Primary care physician with labs within 3-5 days of discharge. If symptoms persist or worsen, return to the Emergency Department. Plan of care discussed with attending Dr. Isaac Eason PGY2 Time Spent with Patient Time attestation: Total time spent providing and/or coordinating discharge services: Time spent: Greater than 30 minutes Exam Vital Signs Temp Pulse Resp BP Pulse Ox O2 Del Method O2 Flow Rate 97.6 F 93 15 152/100 H 95 Room Air 1 04/14/25 08:00 04/14/25 08:14 04/14/25 08:00 04/14/25 08:14 04/14/25 08:00 04/14/25 08:00 04/13/25 13:25 Narrative Exam General: AAOx3, NAD, weak appearing female, HEENT: Dry mucous membranes, conjunctiva clear, EOMI, PERRLA, poor dentition Cardiovascular: S1, S2, radial pulses +2 bilat, tachycardic, ejection systolic murmur heard in right upper sternal border that radiates to the carotid, tattoo on left side of chest Pulmonary: CTAB bilat no cough, no wheezing, attached to present on right upper back GI: No tenderness to light or deep palpitation, no guarding, rigidity, rebound tenderness or distension, abdominal obesity Extremities: Trace pedal edema in lower extremities bilaterally, dorsalis pedis pulses +2 bilaterally, mild to moderate tenderness right elbow joint. Neuro: AAOx3, no focal motor or sensory deficits in the UE or LE bilat Psych: Good judgement, thought and behavior Discharge Plan Plan Patient Disposition: Home w/HOME HEALTH Care Plan Goals: Please stop taking Nodalol and Telmisartan, you have been prescribed new medications for blood pressure control, Losartan 50mg once daily and Metoprolol T. 50mg twice daily. Please continue 7 more days of antibiotic therapy, amoxicillin-pot clavulanate (Augmentin) for treatment of UTI. Please continue insulin 60 units per day as prescribed. Follow up with Primary care physician with labs within 3-5 days of discharge. If symptoms persist or worsen, return to the Emergency Department. Prescriptions/Referrals Prescriptions/Med Rec: New amoxicillin-pot clavulanate [Augmentin] 500-125 mg tablet 1 tab PO BID Qty: 14 0RF losartan 50 mg tablet 50 mg PO QDAY Qty: 30 0RF metoprolol tartrate 50 mg tablet 50 mg PO BID Qty: 60 0RF Continued insulin glargine [Lantus U-100 Insulin] 1 UNIT/0.01 ML unit 60 unit Sub-Q HS Qty: 0 bupropion HCl [Wellbutrin XL] 300 mg Tablet Extended Release 24 Hr 300 mg PO QAM simvastatin 40 mg Tablet 40 mg PO HS duloxetine 30 mg Capsule,Delayed Release(Dr/Ec) 60 mg PO QDAY Discontinued nadolol 40 mg Tablet 40 mg PO QDAY telmisartan 20 mg Tablet 20 mg PO QDAY Referrals: David Carpenter MD [Primary Care Provider] - Patient/Caregiver Discharge Instructions Discharge Activity: activity as tolerated Education Materials: Controlling High Blood Pressure, Anatomy of the Female Urinary Tract, Urinary Tract Infections in Women Print Language: Icelandic Activity Restrictions/Additional Instructions: f/u withmadeline carpenter in 1-2 weeks Stand Alone Forms: Breana Award Info., Patient Portal Info Letter Discharge Order Discharge Orders: Discharge (Routine); Ordered 04/14/25 Ordered By: Lisa Eason Quality Discharge Quality Measures VTE prophylaxis MD Attestestation MD Attestation Patient seen and examined with resident physician Dr. Eason. Note reviewed, agree with findings and recommendations. Patient will be discharged on insulin
--- NOTE | 2025-04-14 10:11 | PC.NURSE ---
Spoke with pt. about discharge orders and planning, son to take pt. home on his lunch.
--- NOTE | 2025-04-15 08:53 | PC.CC ---
Addendum entered by Malgorzata Iqbal RN 04/15/25 15:13: called Dr. Gray to informed need HH orders, left VM. Original Note: Informed Dr. Gray, need HH orders.
--- NOTE | 2025-04-16 06:32 | ESPR_ITS ---
Documentation for date of: 04/16/25 Subjective Subjective Interval history: Sheila is a 69 y/o female with PMHx of hypertension, hyperlipidemia, previous falls, psych disorder (depression/anxiety) comes in for an evaluation after having syncope that occurred when going into the restroom today with prodromal symptoms of diaphoresis and weakness, however with no mechanical trauma to head or other part of body. Patient reports that she has had a history of falls and she says that is partly because of her feeling weak. She says t the patient cervical tenderness completely on the current focal tenderness, completely unremarkable hat she notices that she feels weak when she stands up, and that she fell about a couple of weeks ago [place]. She said in [place]23 she had a fall but did not have syncope and required transfer for surgery as she broke part of her hip in which she has broke part of her hip before as well. 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 She notes that she notices her heart rate increasing when she stands up. She is unsure if her blood pressure changes when she stands up. She does not use home oxygen. She does not use a CPAP. She says she seen Dr. Duarte, make up arranger in [place] before for evaluation of blood flow in the lower extremities (which she said that there was some blockages but nothing significant) but does not see a routine make up arranger at this time. Her primary care doctor is Dr. Gray. She denies any chest pain, shortness of breath, nausea, vomiting, diarrhea, numbness, tingling. She does say that she has not been eating much lately. She also denies any recent travel or sick contacts. She says she is going to get evaluated for dentures soon by the dentist. She does state that she has been losing a lot of her teeth lately. She lives with one of her sons currently. She is currently using CGM freestyle. No other complaints this time 04/11/2025 The patient is evaluated at the bedside, overnight she was delirious, now mental status is at baseline aox3, reported no acute discomfort except right elbow joint pain, Xray had shown acute right radial head fracture, elbow brace ordered. Patient has good mobility of her upper extremity, pain well- controlled. Was seen eating her breakfast with right hand with minimal discomfort. The patient has received 5 L IV fluid, no documented urine output, strict ins and output orders in place, per RN patient had 400 mL urine output during the day so far, patient does seem visibly edematous with facial puffiness. CT abdomen pelvis showed retrocardiac gastric hernia, and pneumonia. Lactic acidosis continue to worsen throughout the night until resolving after repeated fluid boluses, now lactic acid 1.5. On midodrine maintaining vitals. Hemoglobin did drop down from 14 g to 11 g, possible dilutional versus GI bleed, pending stool occult. Sodium 137, potassium 4.5, bicarb 22, BUN 19, creatinine 1.2, anion gap 8, lactic acid 1.5. 04/12/2025, patient is evaluated bedside, mental status at baseline, complaining of mild discomfort right elbow, brace was ordered yesterday, but patient unable to continuously wear due to discomfort, advised patient to continue wearing brace for proper healing. Urine output overnight 1100 mL, complaining of lower abdominal discomfort, reported they feel like bladder spasms , likely secondary to UTI, negative blood cultures to date but urine culture grew E. coli pansensitive. De-escalated antibiotics from vancomycin and Zosyn to ceftriaxone. Also poor glycemic control, blood glucose on morning labs 340, will add insulin Lantus 12 units/day in addition to sliding scale. Sodium 137, potassium 4.1, BUN 21, creatinine 1.2 04/13/2025 patient resting comfortably. Still feeling weak. Will plan for discharge tomorrow. Plan of care discussed with bedside. Review of Systems Review of Systems Narrative Review of Systems: CONSTITUTIONAL: Patient denies any fever, chills. HEENT: Denies any visual disturbances or hearing problems. CARDIOVASCULAR: Patient denies any chest pain, shortness of breath, swelling in the lower extremities. PULMONARY: Patient denies any shortness of breath, cough. GASTROINTESTINAL: Patient denies any abdominal pain, constipation, nausea, vomiting, diarrhea. GENITOURINARY: Patient denies any urinary symptoms of burning or frequency or hematuria, denies any form in the urine. SKIN: Denies any rash. NEUROLOGICAL: Denies any neurological problems of strokes, seizures or confusion. Denies any memory problems. PSYCHIATRIC: Denies any depression or anxiety. LYMPHATICS : No lymphadenopathy Exam Vital Signs Temp Pulse Resp BP Pulse Ox O2 Del Method O2 Flow Rate 36.4 C 82 15 152/100 H 95 Room Air 1 04/14/25 08:00 04/14/25 12:00 04/14/25 08:00 04/14/25 08:14 04/14/25 08:00 04/14/25 08:00 04/13/25 13:25 Narrative Exam GENERAL APPEARANCE: Patient seems to be comfortable, adequately hydrated and nourished. HEENT: EOMI, PERRLA NECK: Neck supple, no JVD or bruit CARDIOVASCULAR: Heart regular, no murmurs LUNGS/CHEST: Chest clear to auscultation. No rales, rhonchi, wheezing ABDOMEN: Soft, nontender, nondistended. No masses. Normal bowel sounds. EXTREMITIES: No edema, clubbing or cyanosis. SKIN: Skin exam normal without any rashes MUSCULOSKELETAL: Musculoskeletal exam normal PSYCHIATRIC: Normal mood, affect LYMPHATICS: No lymphadenopathy noted NEUROLOGICAL : No neurological deficits Objective Labs 04/14/25 04:37 04/14/25 04:37 ABG Interpretation ABG results: 04/10/25 04/10/25 04/10/25 09:48 11:11 21:37 ABG pH 7.35 7.39 ABG pCO2 33 21 L D ABG pO2 87 146 H D ABG HCO3 18 L 12 L ABG O2 Saturation 97 100 H ABG Base Excess -7 L -11 L VBG pH 7.32 L VBG pCO2 35 L VBG pO2 42 VBG Base Excess -7 L Assessment & Plan Additional Assessment & Plan Additional Plan: Problems: Sepsis secondary to pneumonia and UTI Septic shock Type 2 diabetes mellitus Acute kidney injury Retrocardiac gastric atony Acute anemia Depression anxiety Hypertension Continue with antibiotics and increase p.o. intake. Will plan for discharge tomorrow with home health care. Creatinine markedly improved. Sepsis resolved
--- NOTE | 2025-04-16 08:19 | PC.CC ---
Addendum entered by Malgorzata Iqbal RN 04/16/25 15:44: [facility] accepted the pt. Booked [facility]. Start of care date is 04/17/2025. Original Note: No documentation from [facility] on pt preference for HH agency. HH referral sent on [facility]. Awaiting responses. Pending start of care date.
== END 2025-04-14 12:23 | disposition home health service (06) | DRG 871 ==
LOC: SERX 14:25 → SERHOLD 14:45 → S2NX 16:52 → S3SX 04-13 03:58
PROVIDERS: Student in an Organized Health Care Education/Training Program; Admitting Provider Internal Medicine; Emergency Provider Emergency Medicine; PCP Internal Medicine; Visit Provider Internal Medicine
DX: A41.51 Sepsis due to Escherichia coli [E. coli] (principal); J18.9 Pneumonia, unspecified organism; R65.21 Severe sepsis with septic shock; N17.9 Acute kidney failure, unspecified; E87.4 Mixed disorder of acid-base balance; N39.0 Urinary tract infection, site not specified; N18.9 Chronic kidney disease, unspecified; I12.9 Hypertensive chronic kidney disease with stage 1 through stage 4 chronic kidney disease, or unspecified chronic kidney disease; Z91.81 History of falling; F32.A Depression, unspecified; F41.9 Anxiety disorder, unspecified; I95.9 Hypotension, unspecified; E86.0 Dehydration; E86.1 Hypovolemia; E78.5 Hyperlipidemia, unspecified; D72.829 Elevated white blood cell count, unspecified; E11.22 Type 2 diabetes mellitus with diabetic chronic kidney disease; D63.1 Anemia in chronic kidney disease; E11.65 Type 2 diabetes mellitus with hyperglycemia; I95.1 Orthostatic hypotension; K57.30 Diverticulosis of large intestine without perforation or abscess without bleeding; S52.121A Displaced fracture of head of right radius, initial encounter for closed fracture; Z63.4 Disappearance and death of family member; Z79.4 Long term (current) use of insulin; Z79.84 Long term (current) use of oral hypoglycemic drugs; Z79.899 Other long term (current) drug therapy
CPT/HCPCS: 36415; 36600; 70450; 70551; 71045; 73090; 74176; 80053; 80061; 80069; 81001; 82010; 82248; 82270; 82436; 82570; 82803; 83036; 83605; 83735; 83880; 84100; 84133; 84145; 84300; 84439; 84443; 84484; 85025; 85610; 85652; 85730; 86140; 87040; 87077; 87081; 87086; 87186; 87400; 87811; 93005; 93225; 93306; 94664; 96361; 96365; 96366; 96374; 96375; 99285; J0696; J1644; J1815; J1885; J2405; J2470; J2543; J3370; J3490; J7030; J7120; J7999; A9270

== ENCOUNTER 2025-05-15 13:32 | Emergency (ER) | payer MEDICARE, BC, SELFPAY ==
[2025-05-15] VITALS (7 sets, daily range): BP systolic 108–161; BP diastolic 71–84; PULSE 53–77; RESP 15–20; TEMP 36.4–36.9; O2SAT 96–99
--- NOTE | 2025-05-15 13:49 | XR_ITS ---
Examination: CT abdomen with intravenous contrast CT pelvis with intravenous contrast 2-D coronal reconstructions 2-D sagittal reconstructions Date and time of exam:May 15, 2025 1530 hours Comparison February 08, 2025 INDICATIONS: Epigastric pain today. CTDI: vol (mGy) 5.56 DLP: (mGycm) 289 Technique: Multiple axial sections of the abdomen and pelvis have been obtained. 64 slice high-resolution scanner used. 3 mm axial sections have been obtained, post intravenous injection 60 cc [id number] 2-D sagittal, coronal reconstructions obtained. Low dose protocols were performed. One or more of the following dose reduction techniques were used; automated exposure control, adjustment of the mA and/or KV according to patient size, use of iterative reconstruction technique. Findings: Large retrocardiac gastric hernia No focal liver or splenic lesions Contracted gallbladder No biliary tract dilatation No pancreatic mass Common bile duct 7 mm No renal or ureteral calculi Aorta normal size No hydronephrosis Colonic diverticulosis Normal appendix No bowel obstruction No diverticulitis Retroverted uterus No adnexal mass. Contracted urinary bladder Severe osteopenia Advanced degenerative disc disease lower 3 lumbar levels Left hip bipolar hemiarthroplasty IMPRESSION: Large retrocardiac gastric hernia Common bile duct mildly enlarged, recommend hepatobiliary sonography follow-up No renal or ureteral calculi, no hydronephrosis Normal appendix No bowel obstruction Colonic diverticulosis, no diverticulitis
--- NOTE | 2025-05-15 13:49 | EKG_ITS ---
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
--- NOTE | 2025-05-15 13:49 | XR_ITS ---
Examination: PA chest single view TECHNIQUE: Upright PA chest single view Date and time: May 15, 2025 1401 hours INDICATIONS: Chest pain epigastric pain today. FINDINGS: Large retrocardiac gastric hernia. Normal heart size. No pneumonia or pulmonary edema IMPRESSION: Large retrocardiac gastric hernia
--- NOTE | 2025-05-15 13:51 | PD.EDABDPN ---
ED Abdominal Pain RME/HPI General Chief Complaint: Abdominal Pain Stated complaint: Dr. Gray sent pt. for hiatal hernia Time seen by provider: 05/15/25 13:45 Arrival date/time: 05/15/25 13:32 RME / HPI RME / HPI narrative: 69-year-old female patient with significant history of hypertension diabetes mellitus, hiatal hernia, came in for evaluation regarding epigastric pain. Patient told me that her hiatal hernia is probably acting up, has been ongoing for the last 3 days. Associated with nausea. Pain is described as dull ache, severity 4 out of 10. Patient denies any fever denies any cough denies any chest pain denies any other complaints. Patient was seen by PCP and was referred here for further evaluation. Related Data Home Medications ?Medication ?Instructions ?Recorded ?Confirmed insulin glargine 100 unit/mL 60 unit subcut HS ##0 08/12/14 04/13/25 subcutaneous solution (Lantus U-100 Insulin) bupropion HCl 300 mg 24 hr tablet, 300 mg PO QAM 02/04/19 04/13/25 extended release (Wellbutrin XL) duloxetine 30 mg capsule,delayed 60 mg PO QDAY 07/31/20 04/13/25 release simvastatin 40 mg tablet 40 mg PO HS 07/31/20 04/13/25 Previous Rx's ?Medication ?Instructions ?Recorded amoxicillin 500 mg-potassium 1 tab PO BID #14 tabs 04/13/25 clavulanate 125 mg tablet (Augmentin) losartan 50 mg tablet 50 mg PO QDAY #30 tabs 04/14/25 metoprolol tartrate 50 mg tablet 50 mg PO BID #60 tabs 04/14/25 metoclopramide HCl 10 mg tablet 10 mg PO Q6H PRN nausea and 05/15/25 (Reglan) vomiting #20 tabs pantoprazole 40 mg tablet,delayed 40 mg PO QDAY #20 tabs 05/15/25 release (Protonix) Allergies Allergy/AdvReac Type Severity Reaction Status Date / Time No Known Allergies Allergy Verified 05/15/25 13:38 Review of Systems Review of Systems Narrative Review of Systems: Review of system reviewed and within normal limits except mentioned in HPI ED Exam Narrative Physical exam: VITAL SIGNS: Reviewed. GENERAL APPEARANCE: Alert and interactive, follows commands, no acute distress, HEAD AND FACE: Non-traumatic. ENT: PERRL, pink conjunctivitis, eyelid no trauma, Mucous membrane moist. NECK: Supple, nontender, no nuchal rigidity. CHEST: No tenderness, no crepitus, no paradoxical movement, no retractions. LUNGS: Clear, well ventilated, symmetric, no rales, no wheezing, no ronchi, no stridor, good breath sounds bilaterally. HEART: Regular rate, regular rhythm, no murmur, no gallops. ABDOMEN: Soft, positive bowel sounds, nondistended, no guarding, epigastric tenderness, no rebound, no masses, RECTAL: Deferred. GENITAL: Deferred. NEUROLOGICAL: Gross motor function intact sensory function intact, Appropriate for age. MUSCULOSKELETAL: low back nontender, full range of motion. EXTREMITIES: Nontender, full range of motion. SKIN: Color pink, dry, no rash, no lacerations, no abrasions, no contusions. LYMPHATICS: Deferred. Course Quality Measures none Orders Category Date Time Status CT Screening NOW Care 05/15/25 13:50 Active EKG (ED ONLY) *Do not use* NOW Care 05/15/25 13:[address] abdomen pelvis w con Stat Exams 05/15/25 13:49 Completed EKG (ED Only) Stat Exams 05/15/25 13:49 Draft XR chest 1V Stat Exams 05/15/25 13:49 Completed CBC Stat Lab 05/15/25 13:58 Completed Comprehensive Metabolic Panel Stat Lab 05/15/25 13:58 Completed Partial Thromboplastin Time Stat Lab 05/15/25 13:58 Completed Troponin I Stat Lab 05/15/25 13:58 Completed Urinalysis, C/S if Indicated Stat Lab 05/15/25 14:10 Completed ALBUTEROL RT 0.5ml [Proventil Rt 0.5ml] Med 05/15/25 14:56 Discontinued 5 mg INH X1 ONE Acetaminophen Tab [Tylenol ES Tab] Med 05/15/25 13:51 Discontinued 500 mg PO X1 ONE Calcium Gluc/Ns 1000MG Ivpb [Calcium Gluc/Ns 1000mg Med 05/15/25 14:56 Discontinued Ivpb] 1,000 mg in 50 ml IV X1 Insulin Regular Med 05/15/25 16:33 Discontinued 5 unit IV X1 ONE Metoclopramide [Reglan] Med 05/15/25 13:49 Discontinued 10 mg PO X1 ONE Sod Polystyrene Sulfon Susp [Kayexalate Susp] Med 05/15/25 14:56 Discontinued 30 gm PO X1 ONE Sodium Chloride 0.9% 1000 ml [Ns] 1,000 ml Med 05/15/25 16:34 Discontinued IV 999 mls/hr Sodium Chloride Rt Nelly 0.9% [NS Rt Nelly 0.9%] Med 05/15/25 14:56 Active 3 ml INH PRN PRN mg Hyd/Al Hyd/Liyah Susp [Maalox Susp] Med 05/15/25 13:49 Discontinued 30 ml PO X1 ONE Vital Signs Vital signs: Vital Signs Temperature 98.5 F 05/15/25 13:46 Pulse Rate 77 05/15/25 13:46 Respiratory Rate 20 05/15/25 13:46 Blood Pressure 108/71 05/15/25 13:46 Pulse Oximetry (%) 96 05/15/25 13:46 Oxygen Delivery Method Room Air 05/15/25 13:46 Abdominal Pain MDM MDM Narrative MDM Narrative:: 69-year-old female patient with significant history of hypertension diabetes mellitus, hiatal hernia, came in for evaluation regarding epigastric pain. Patient told me that her hiatal hernia is probably acting up, has been ongoing for the last 3 days. Associated with nausea. Pain is described as dull ache, severity 4 out of 10. Patient denies any fever denies any cough denies any chest pain denies any other complaints. Patient was seen by PCP and was referred here for further evaluation. EKG showed sinus rhythm, ventricular rate of 63 bpm, peer interval 1.1 MS, no ST segment elevation depression noted. Patient's workup today all came back unremarkable except for potassium 5.8. Patient received calcium gluconate, IV fluids, albuterol breathing treatment, repeat potassium is not needed at this time. Patient verbalized significant improvement of symptoms. Patient blood sugar was noted to be 289 prior to discharge vital signs stable. Patient was advised to follow-up with PCP and for referral to thoracic surgeon for the hiatal hernia. Patient agrees with the plan. Patient data External records reviewed:: None Clinical information provided by:: patient Social determinants that could affect healthcare access:: none Patient has the following chronic illnesses:: Diabetes mellitus How is presenting disease/condition affected by chronic disease/condition?: exacerbated by Evaluation data The following diagnostics were reviewed and interpreted by me:: lab results, radiology exam(s) and EKG tracing(s) Lab and/or radiology exams considered but not ordered:: None Interpretation Summary: See results MDM Medications / Prescriptions Medications or Prescriptions considered but not ordered:: None Medication administrations:: Medication Administration History Sodium Chloride (Sodium Chloride Rt Nelly 0.9% 3 Ml Nebu) 3 ml INH PRN PRN PRN Reason: SOLN Stop: 06/14/25 14:55 Last Admin: 05/15/25 16:07 Dose: 3 ml Documented By: HEATHER Discontinued Medications Acetaminophen (Acetaminophen 500 Mg Tablet) 500 mg PO X1 ONE Stop: 05/15/25 13:52 Last Admin: 05/15/25 14:46 Dose: 500 mg Documented By: ELIZABETH Al Hydrox/Mg Hydrox/Simethicone (Mg Hyd/Al Hyd/Liyah (Maalox Reg) Susp 30 Ml Udc) 30 ml PO X1 ONE Stop: 05/15/25 13:50 Last Admin: 05/15/25 14:46 Dose: 30 ml Documented By: ELIZABETH Albuterol (Albuterol Rt 2.5 Mg/0.5 Ml Nebu) 5 mg INH X1 ONE Stop: 05/15/25 14:57 Last Admin: 05/15/25 16:06 Dose: 5 mg Documented By: HEATHER Calcium Gluconate/Sodium Chloride (Calcium Gluc/Ns 1000mg Ivpb) 1,000 mg in 50 mls @ 50 mls/hr IV X1 ONE Stop: 05/15/25 15:55 Last Admin: 05/15/25 16:59 Dose: 50 mls/hr Documented By: CHARISSA Sodium Chloride (Ns) 1,000 mls @ 999 mls/hr IV .Q1H1M ONE Stop: 05/15/25 17:34 Last Admin: 05/15/25 16:44 Dose: 999 mls/hr Documented By: CHARISSA Insulin Human Regular (Insulin Hum Regular 1 Unit/0.01 Ml (Per Unit)) 5 unit IV X1 ONE Stop: 05/15/25 16:34 Last Admin: 05/15/25 16:42 Dose: Not Given Documented By: CHARISSA Non-Admin Reason: Cancelled by Provider Metoclopramide HCl (Metoclopramide 5 Mg Tablet) 10 mg PO X1 ONE Stop: 05/15/25 13:50 Last Admin: 05/15/25 14:46 Dose: 10 mg Documented By: ELIZABETH Sodium Polystyrene Sulfonate (Sod Polystyrene Sulfon Susp 15 Gm/60 Ml Btl) 30 gm PO X1 ONE Stop: 05/15/25 14:57 Last Admin: 05/15/25 16:44 Dose: 30 gm Documented By: EF IV fluids, Reglan, calcium gluconate, albuterol, Kayexalate Tylenol Consultations Consultation(s) initiated? (list below): No Diagnosis Differential diagnosis abdominal pain: abdominal pain and constipation Most likely diagnosis given after review of the tests above:: Hiatal hernia, retrocardiac gastric hernia Admission Indicated Admission indicated?: not indicated Explain why admission is indicated or not indicated:: Stable Admission Request Was there a request for admission?: No Disposition Plan Disposition Plan: Discharge Discharge Attestation Discharge Attestation: The patient and all family members were given an opportunity to ask questions and understood the discharge instructions. Discharge instructions specifically effects, indications for sooner follow up or return to the emergency department, and the expected course of current diagnosis. Patient condition: Stable Discharge Plan Plan Patient Disposition: HOME (Self Care) Discharge Disposition comment: Stable Prescriptions/Referrals Prescriptions/Med Rec: New metoclopramide HCl [Reglan] 10 mg tablet 10 mg PO Q6H PRN (Reason: nausea and vomiting) Qty: 20 0RF pantoprazole [Protonix] 40 mg tablet,delayed release (DR/EC) 40 mg PO QDAY Qty: 20 0RF No Action insulin glargine [Lantus U-100 Insulin] 1 UNIT/0.01 ML unit 60 unit Sub-Q HS Qty: 0 bupropion HCl [Wellbutrin XL] 300 mg Tablet Extended Release 24 Hr 300 mg PO QAM simvastatin 40 mg Tablet 40 mg PO HS duloxetine 30 mg Capsule,Delayed Release(Dr/Ec) 60 mg PO QDAY amoxicillin-pot clavulanate [Augmentin] 500-125 mg tablet 1 tab PO BID Qty: 14 0RF losartan 50 mg tablet 50 mg PO QDAY Qty: 30 0RF metoprolol tartrate 50 mg tablet 50 mg PO BID Qty: 60 0RF Referrals: David Gray MD [Primary Care Provider] - In 1 week Problem List Clinical Impression: Acute epigastric pain, Hernia, hiatal Patient/Caregiver Discharge Instructions Discharge Activity: activity as tolerated Education Materials: ED Hernia (Adult) Additional Instructions: Thank you for the opportunity for serving you today. You are stable for discharged . You are advised to: Follow-up with your PCP in 1 to 2 days and as per referral to thoracic surgeon regarding your hiatal hernia/retrocardiac gastric hernia Return to ED for worsening of symptoms Increase oral fluids Take medication as prescribed Print Language: Occitan Stand Alone Forms: Breana Award Info., Patient Portal Info Letter PA/ANDREW Supervising Physician LILLIE/ANDREW Supervising Physician: MD Mercedez
[2025-05-15 14:18] LABS: Collection Type, Urine Clean Catch
[2025-05-15 14:25] LABS: Basophils # (Auto) 0.0 Thou/mm3 (0.0-0.2); Basophils % (Auto) 1 % (0-2.5); Eosinophils # (Auto) 0.1 Thou/mm3 (0.0-0.5); Eosinophils % (Auto) 1 % (0-10); Hematocrit 43.1 % (36.0-46.0); Hemoglobin 14.4 g/dL (12.0-16.0); Immature Granulocytes Auto 0.02 Thou/mm3 (0.00-0.00); Lymphocytes # (Auto) 1.4 Thou/mm3 (1.0-4.8); Lymphocytes % (Auto) 26 % (10-50); Mean Corpuscular HGB Conc 33.4 g/dl (31.0-37.0); Mean Corpuscular Hemoglobin 31.4 pg (25.0-35.0); Mean Corpuscular Volume 94 fL (80-100); Monocytes # (Auto) 0.3 Thou/mm3 (0.0-0.8); Monocytes % (Auto) 6 % (0-12); Neutrophils # (Auto) 3.5 Thou/mm3 (1.8-7.7); Neutrophils % (Auto) 66 % (37-80); Nucleated Red Blood Cell # 0.00 Thou/mm3 (0.00-0.00); Nucleated Red Blood Cell % 0 /100 WBC (0); Platelet Count 201 Thou/mm3 (140-440); RDW Standard Deviation 43.4 fL (36.4-46.3); Red Blood Count 4.59 Miln/mm3 (4.00-5.20); White Blood Count 5.3 Thou/mm3 (3.6-11.0)
[2025-05-15 14:32] LABS: Bilirubin,Urine Negative (Negative); Blood,Urine Negative (Negative); Clarity,Urine Clear (Clear/Hazy); Color,Urine Lt-Yellow (Lt Yel-Yel); Culture Indicated,Urine Not Indicated; Glucose, Urine 4+ (Negative); Ketones,Urine Negative (Negative); Leukocyte Esterase,Urine Negative (Negative); Nitrite,Urine Negative (Negative); PH,Urine 6.0 (5.0-7.0); Protein,Urine Negative (Neg - Trace); RBC,Urine 1 /hpf (0-3); Specific Gravity,Urine 1.012 (1.001-1.035); Squamous Epithelial Cell,Urine < 1 /hpf (0-5); Urobilinogen,Urine Negative mg/dL (0.0-1.0); WBC,Urine 1 /hpf (0-5)
[2025-05-15 14:41] LABS: Partial Thromboplastin Time 25.9 Seconds (22.0-36.0)
[2025-05-15 14:45] LABS: Alanine Aminotransferase 22 U/L (10-49); Albumin, Serum 3.9 gm/dL (3.4-4.8); Albumin/Globulin Ratio 1.6 (1.2-2.2); Alkaline Phosphatase 98 U/L (46-116); Anion Gap 6 (7-16); Aspartate Amino Transferase 22 U/L (0-34); BUN/Creatinine Ratio 12 Ratio (12-20); Bilirubin,Total 0.5 mg/dL (0.3-1.2); Blood Urea Nitrogen 12 mg/dL (9-23); Calcium 8.9 mg/dL (8.3-10.6); Calcium (Corrected) 9.0 mg/dL (8.5-10.1); Carbon Dioxide 27.6 mMol/L (20.0-31.0); Chloride 97 mMol/L (98-107); Creatinine (Component) 1.0 mg/dL (0.6-1.3); Globulin 2.4 gm/dL (2.3-3.5); Osmolality,Calculated 280 (275-295); Potassium 5.8 mMol/L (3.4-5.1); Sodium 131 mMol/L (136-145); Total Protein 6.3 gm/dL (5.7-8.2); Troponin I < 0.020 ng/mL (0.0-0.045); eGFR > 60 See Note
[2025-05-15] MEDS: MG HYD/AL HYD/SIME (Maalox Reg) SUSP 30 ML UDC PO (14:46)
[2025-05-15] MEDS: ACETAMINOPHEN 500 MG TABLET PO (14:46)
[2025-05-15] MEDS: METOCLOPRAMIDE 5 MG TABLET 10 MG PO (14:46)
[2025-05-15 14:48] LABS: Glucose 428 mg/dL (74-106)
[2025-05-15] MEDS: ALBUTEROL RT 2.5 MG/0.5 ML NEBU 5 MG INH (16:06)
[2025-05-15] MEDS: SODIUM CHLORIDE RT SOL 0.9% 3 ML NEBU INH (16:07)
[2025-05-15] MEDS: SOD POLYSTYRENE SULFON SUSP 15 GM/60 ML BTL 30 GM PO (16:44)
[2025-05-15] MEDS: SODIUM CHLORIDE 0.9% 1000 ML 1,000 ML 999 ML IV (16:44)
[2025-05-15] MEDS: CALCIUM GLUC/NS 1000MG IVPB 1,000 MG/50 ML BAG 50 MG IV (16:59)
== END 2025-05-15 18:16 | disposition home or self-care (01) ==
PROVIDERS: Nurse Practitioner Family; Emergency Provider Emergency Medicine; PCP Internal Medicine
DX: K44.9 Diaphragmatic hernia without obstruction or gangrene (principal); R10.13 Epigastric pain; I10 Essential (primary) hypertension
CPT/HCPCS: 36415; 71045; 74177; 80053; 81001; 84484; 85025; 85730; 93005; 94640; 96365; 99283; A4649; J0613; J7030; Q9967; A9270